=== PATIENT | female | born 1980 | race Caucasian/White ===

== ENCOUNTER 2020-06-12 14:44 | Outpatient (REF) | payer OTHER, SELFPAY ==
--- NOTE | 2020-06-12 | US_ITS ---
EXAMINATION: ULTRASOUND OF THE PELVIS CLINICAL INFORMATION: Irregular menses. COMPARISON: None. TECHNIQUE: Transabdominal and transvaginal pelvic ultrasound. A transvaginal study was performed in addition to the transabdominal study which did not yield an adequate examination of the uterus and ovaries due to superimposed distended gas-filled loops of bowel. FINDINGS: The uterus is normal in size and appearance, measuring 7.2 x 3.2 x 4.6 cm longitudinally, anteroposteriorly and transversely. The endometrial stripe thickness is normal, measuring 0.4 cm in thickness. Small amount of fluid seen in the endometrial canal of the lower uterine segment. No focal myometrial mass is seen. The ovaries bilaterally are visualized and appear normal, with the right ovary measuring 3 x 2.4 x 1.6 cm and the left ovary measuring 2.8 x 1.5 x 0.8 cm. No adnexal mass or free fluid collection seen. US/US pelvic complete IMPRESSION: No abnormal endometrial thickening. Small amount of fluid within the endometrial canal of the lower uterine segment. No pelvic mass.
--- NOTE | 2020-06-12 | US_ITS ---
EXAMINATION: ULTRASOUND OF THE PELVIS CLINICAL INFORMATION: Irregular menses. COMPARISON: None. TECHNIQUE: Transabdominal and transvaginal pelvic ultrasound. A transvaginal study was performed in addition to the transabdominal study which did not yield an adequate examination of the uterus and ovaries due to superimposed distended gas-filled loops of bowel. FINDINGS: The uterus is normal in size and appearance, measuring 7.2 x 3.2 x 4.6 cm longitudinally, anteroposteriorly and transversely. The endometrial stripe thickness is normal, measuring 0.4 cm in thickness. Small amount of fluid seen in the endometrial canal of the lower uterine segment. No focal myometrial mass is seen. The ovaries bilaterally are visualized and appear normal, with the right ovary measuring 3 x 2.4 x 1.6 cm and the left ovary measuring 2.8 x 1.5 x 0.8 cm. No adnexal mass or free fluid collection seen. US/US transvaginal IMPRESSION: No abnormal endometrial thickening. Small amount of fluid within the endometrial canal of the lower uterine segment. No pelvic mass.
[2020-06-12 16:07] LABS: MANUAL DIFF FLAG NO
[2020-06-12 16:12] LABS: Basophils Absolute Auto 0.1 X10*3/uL (0.0-0.2); Basophils Percent Auto 0.8 % (0-2); Eosinophils Absolute Auto 0.1 X10*3/uL (0.0-0.4); Eosinophils Percent Auto 2.2 % (0-4); Hematocrit 39.9 % (37-47); Hemoglobin 13.1 g/dl (12.0-16.0); Imm Gran Abs Auto 0.02 X10*3/uL (0.00-0.03); Imm Gran Pct Auto 0.3 % (0.0-0.4); Lymphocytes Absolute Auto 1.5 X10*3/uL (1.2-4.9); Lymphocytes Percent Auto 24.3 % (20-40); Mean Corpuscular HGB Conc 32.8 g/dl (31.0-35.0); Mean Corpuscular Volume 94.5 fL (80-98); Mean Platelet Volume 10.2 fL (9.4-12.3); Monocytes Absolute Auto 0.6 X10*3/uL (0.1-1.2); Monocytes Percent Auto 9.3 % (2-11); Neutrophils Absolute Auto 3.8 X10*3/uL (2.0-8.3); Neutrophils Percent Auto 63.1 % (45-73); Platelet Count 270 X10*3/uL (160-400); Red Blood Count 4.22 X10*6/uL (4.20-5.50); Red Cell Distribution Width 12.6 % (11.0-16.0)
[2020-06-12 16:58] LABS: TSH reflex Free T4 1.49 mIU/mL (0.32-4.0)
[2020-06-13 07:47] LABS: Prolactin 17.4 ng/mL
== END 2020-06-12 14:45 | disposition home or self-care (01) ==
LOC: HO.US 14:44
PROVIDERS: PCP Pediatrics; Visit Provider Obstetrics & Gynecology
DX: N92.1 Excessive and frequent menstruation with irregular cycle (principal)
CPT/HCPCS: 36415; 76830; 76856; 84146; 84443; 85025

== ENCOUNTER 2020-07-05 08:36 | Outpatient (REF) | payer OTHER, SELFPAY ==
[2020-07-05 12:17] LABS: SARS COV2 IgG Negative (Negative)
== END 2020-07-05 08:37 | disposition home or self-care (01) ==
LOC: HO.LAB 08:36
PROVIDERS: PCP Pediatrics; Visit Provider Hospitalist
DX: U07.1 COVID-19 (principal)
CPT/HCPCS: 86769

== ENCOUNTER 2020-10-11 08:40 | Outpatient (REF) | payer OTHER, SELFPAY ==
[2020-10-11 09:01] LABS: COVID-19 Test Negative (Negative); IDNOW Serial# 55D5AD1C
== END 2020-10-11 08:41 | disposition home or self-care (01) ==
LOC: HO.EMPCOV 08:40
PROVIDERS: Visit Provider Internal Medicine
DX: Z20.822 Contact with and (suspected) exposure to COVID-19 (principal)
CPT/HCPCS: 36415; 87635; C9803

== ENCOUNTER 2020-11-02 11:39 | Outpatient (REF) | payer OTHER, SELFPAY ==
[2020-11-02 12:31] LABS: Hematocrit 40.3 % (37-47); Mean Corpuscular HGB Conc 32.3 g/dl (31.0-35.0); Mean Corpuscular Hemoglobin 29.7 pg (27.0-33.0); Mean Platelet Volume 10.4 fL (9.4-12.3); Platelet Count 268 X10*3/uL (160-400); Red Blood Count 4.38 X10*6/uL (4.20-5.50); Red Cell Distribution Width 13.7 % (11.0-16.0); White Blood Count 7.5 X10*3/uL (4.8-10.8)
[2020-11-02 13:04] LABS: HCG Quantitative < 2 mIU/mL
== END 2020-11-02 11:40 | disposition home or self-care (01) ==
LOC: HO.LAB 11:39
PROVIDERS: PCP Pediatrics; Visit Provider Obstetrics & Gynecology
DX: R58 Hemorrhage, not elsewhere classified (principal)
CPT/HCPCS: 36415; 84702; 85027

== ENCOUNTER 2021-01-29 10:46 | Outpatient (REF) | payer OTHER, SELFPAY ==
--- NOTE | ~2021-01-29 | XR_ITS ---
EXAMINATION: XR ANKLE, LEFT CLINICAL INFORMATION: Injury COMPARISON: None TECHNIQUE: AP, lateral, and mortise views of the left ankle. FINDINGS: The bones and soft tissues are normal. No fracture. Alignment is anatomic. Joint spaces are maintained. No joint effusion. XR/XR ankle LT min 3V IMPRESSION: Normal left ankle.
--- NOTE | ~2021-01-29 | US_ITS ---
EXAMINATION: US VENOUS ULTRASOUND WITH DOPPLER LOWER EXTREMITY, LEFT CLINICAL INFORMATION: Localized swelling, mass and lump. Pain. COMPARISON: None TECHNIQUE: Ultrasound of the deep veins is performed from the hip to the calf with compression sonography and color and pulse Doppler assessment. Spectral analysis with color-flow imaging is performed. FINDINGS: There is normal venous compression and respiratory variation and augmented flow. The visualized common femoral vein, superficial femoral vein, profunda femoral vein, popliteal vein, and the trifurcation region shows no evidence of deep venous thrombosis. There is no significant popliteal fossa cyst. No soft tissue mass or fluid collection is seen in the area of palpable abnormality over the medial ankle. US/US venous duplex LE LT IMPRESSION: No DVT demonstrated in the left lower extremity.
== END 2021-01-29 10:47 | disposition home or self-care (01) ==
LOC: HO.HMGCX 10:46
PROVIDERS: PCP Pediatrics; Visit Provider Nurse Practitioner Family
DX: S99.912A Unspecified injury of left ankle, initial encounter (principal); M79.662 Pain in left lower leg; R22.42 Localized swelling, mass and lump, left lower limb
CPT/HCPCS: 73610; 93971

== ENCOUNTER 2021-05-14 07:10 | Outpatient (REF) | payer OTHER, SELFPAY ==
--- NOTE | ~2021-05-14 | XR_ITS ---
EXAMINATION: XR FOOT, LEFT CLINICAL INFORMATION: Pain COMPARISON: Left ankle x-ray January 2021 TECHNIQUE: AP, lateral, and oblique views of the left foot. FINDINGS: The bones and soft tissues are normal. No fracture. Alignment is anatomic. Joint spaces are maintained. XR/XR foot LT 2V IMPRESSION: Normal left foot.
== END 2021-05-14 07:11 | disposition home or self-care (01) ==
LOC: HO.XRAY 07:10
PROVIDERS: Visit Provider Family Medicine
DX: M79.672 Pain in left foot (principal)
CPT/HCPCS: 73620

== ENCOUNTER 2021-07-30 07:20 | Outpatient (REF) | payer OTHER, SELFPAY ==
[2021-07-31 04:14] LABS: SARS COV2 IgG Negative (Negative)
== END 2021-07-30 07:21 | disposition home or self-care (01) ==
LOC: HO.LAB 07:20
PROVIDERS: Visit Provider Internal Medicine Pulmonary Disease
DX: Z20.822 Contact with and (suspected) exposure to COVID-19 (principal)
CPT/HCPCS: 36415; 86769

== ENCOUNTER 2022-04-24 12:10 | Outpatient (REF) | payer OTHER, SELFPAY ==
--- NOTE | ~2022-04-24 | MM_ITS ---
EXAMINATION: MM SCREENING DIGITAL BREAST TOMOSYNTHESIS, BILATERAL CLINICAL INFORMATION: Screening. Asymptomatic. Age 41. No prior breast imaging. No known family history breast cancer. The lifetime risk of breast cancer based on the Tyrer-Cuzick Model is 12%. COMPARISON: None (current study represents initial baseline exam). TECHNIQUE: Digital breast tomosynthesis is performed in both the craniocaudal and mediolateral oblique views along with computer-aided detection (CAD). Synthesized 2D images are generated from the tomosynthesis. FINDINGS: The breasts are heterogeneously dense, which may obscure small masses (ACR BI-RADS breast composition Category c). There is no significant mass and no architectural abnormality. The axilla and skin contours are unremarkable. Right breast shows no abnormal calcifications. Left breast has some calcifications anterior outer breast. Patient will be recalled for additional magnification views to fully characterize. MM/MM tomosynthesis screening BI IMPRESSION: Left: -Calcifications anterior outer breast. Right: -No mammographic evidence of malignancy. ASSESSMENT: BI-RADS 0: Incomplete - Need Additional Imaging Evaluation RECOMMENDATION: 1. Additional views of the left breast (magnification CC, magnification ML). 2. Radiology department staff will contact the patient for additional imaging. This patient's information was entered into a reminder system with a target due date for their next mammogram.
== END 2022-04-24 12:11 | disposition home or self-care (01) ==
LOC: HO.MAMMO 12:10
PROVIDERS: PCP Pediatrics; Visit Provider Pediatrics
DX: Z12.31 Encounter for screening mammogram for malignant neoplasm of breast (principal)
CPT/HCPCS: 77063; 77067

== ENCOUNTER 2022-04-30 08:21 | Outpatient (REF) | payer OTHER, SELFPAY ==
--- NOTE | ~2022-04-30 | MM_ITS ---
EXAMINATION: MM DIAGNOSTIC DIGITAL MAMMOGRAPHY, LEFT CLINICAL INFORMATION: Recall from baseline screening for calcifications anterior outer left breast. TC score 12%. No known family history breast cancer. COMPARISON: Mammography: 04/24/2022, baseline. TECHNIQUE: Digital mammography is performed in the following views: Magnification CC, magnification ML FINDINGS: The breasts are heterogeneously dense, which may obscure small masses (ACR BI-RADS breast composition Category c). The additional magnification views demonstrate similar appearing regional calcifications anterior lower outer left breast. Calcifications are scattered on the ML view. The recent baseline exam also shows scattered similar calcifications lower inner right breast of lesser number. Left breast calcifications will be reassessed again in 6 months to include magnification views. Results are discussed with the patient at time of visit. MM/MM added views LT IMPRESSION: Probable benign regional calcifications anterior lower outer left breast. ASSESSMENT: BI-RADS 3: Probably Benign RECOMMENDATION: Diagnostic left mammography in 6 months. This patient's information was entered into a reminder system with a target due date for their next mammogram.
== END 2022-04-30 08:22 | disposition home or self-care (01) ==
LOC: HO.MAMMO 08:21
PROVIDERS: PCP Pediatrics; Visit Provider Pediatrics
DX: R92.8 Other abnormal and inconclusive findings on diagnostic imaging of breast (principal)
CPT/HCPCS: 77065

== ENCOUNTER 2022-07-31 11:08 | Outpatient (REF) | payer OTHER, SELFPAY ==
[2022-07-31 11:30] LABS: MANUAL DIFF FLAG NO
[2022-07-31 11:47] LABS: Basophils Absolute Auto 0.1 X10*3/uL (0.0-0.2); Basophils Percent Auto 1.1 % (0-2); Eosinophils Absolute Auto 0.2 X10*3/uL (0.0-0.4); Eosinophils Percent Auto 2.9 % (0-4); Hematocrit 41.5 % (37.0-47.0); Hemoglobin 13.9 g/dl (12.0-16.0); Imm Gran Abs Auto 0.02 X10*3/uL (0.00-0.03); Imm Gran Pct Auto 0.3 % (0.0-0.4); Lymphocytes Absolute Auto 1.5 X10*3/uL (1.2-4.9); Lymphocytes Percent Auto 23.7 % (20-40); Mean Corpuscular HGB Conc 33.5 g/dl (31.0-35.0); Mean Corpuscular Hemoglobin 30.5 pg (27.0-33.0); Monocytes Absolute Auto 0.5 X10*3/uL (0.1-1.2); Monocytes Percent Auto 7.5 % (2-11); Neutrophils Percent Auto 64.5 % (45-73); Platelet Count 298 X10*3/uL (160-400); Red Blood Count 4.56 X10*6/uL (4.20-5.50); Red Cell Distribution Width 12.3 % (11.0-16.0); White Blood Count 6.2 X10*3/uL (4.8-10.8)
[2022-07-31 12:24] LABS: Alanine Aminotransferase 23 U/L (0-31); Albumin Level 4.3 g/dL (3.5-5.0); Alkaline Phosphatase 75 U/L (39-117); Anion Gap 13 (12-20); Aspartate Amino Transferase 22 U/L (5-31); Bilirubin Total 0.4 mg/dL (0.0-1.0); Blood Urea Nitrogen 12 mg/dL (9-16); C Reactive Protein 0.21 mg/dL (< or = 0.50); Calcium 9.3 mg/dL (8.4-10.2); Carbon Dioxide 23 mmol/L (22-29); Chloride 108 mmol/L (96-108); Estimated Glomerular Filt Rate > 60; Glucose Random 82 mg/dL (60-115); Sodium 140 mmol/L (135-145); Total Protein 7.2 g/dL (6.5-8.0)
[2022-07-31 12:29] LABS: Erythrocyte Sedimentation Rate 10 MM/HR (0-20)
== END 2022-07-31 11:09 | disposition home or self-care (01) ==
LOC: HO.LAB 11:08
PROVIDERS: PCP Pediatrics; Visit Provider Family Medicine
DX: R21 Rash and other nonspecific skin eruption (principal); L29.9 Pruritus, unspecified
CPT/HCPCS: 36415; 80053; 85025; 85652; 86140

== ENCOUNTER → 2022-08-12 15:00 | Outpatient (REF) | payer OTHER, SELFPAY ==
--- NOTE | 2022-08-12 15:04 | CA_ITS ---
Transthoracic Echocardiogram Patient (Last, First, Middle): Laura Gutierrez, Gender: Female Date of : 1980 Age: 41 Procedure Date: 08/12/2022 Procedure Type: Transthoracic Echocardiogram Location: OP Height: 157.48 cm Weight: 69.85 kg BSA: 1.71 m2 Heart Rate: bpm BP: 124 / 82 mmHg Detective Lieutenant: MOJGAN Referring MD: Jami Espana MD Shipping Track Supervisor: Shashi Reveles MD Symptoms: DAVE.2 PALPITATIONS Study Quality: Adequate ECG Rhythm: Sinus Conclusions: - Normal study Findings Left Ventricle Normal left ventricular size, thickness, and systolic function. The visually estimated ejection fraction is between 60-65%. Diastolic function is normal for age. Peak GLS is -21.3%, within normal limits. Right Ventricle Normal right ventricular cavity size and systolic function. Atria Both atria are normal in size. There is lipomatous hypertrophy of the interatrial septum. There is no evidence of interatrial shunt. Aortic Valve The aortic valve structure and function is likely normal. There is no aortic valve stenosis. There is no aortic valve regurgitation. Mitral Valve Normal mitral valve structure and function. There is trace mitral valve regurgitation. There is no mitral valve stenosis. Pulmonic Valve The pulmonic valve is likely normal. There is trace pulmonic valve regurgitation. Tricuspid Valve Normal tricuspid valve structure. There is trace tricuspid valve regurgitation. The right ventricular systolic pressure is normal. The right ventricular systolic pressure is 13 mmHg. Normal right atrial pressure. There is no evidence of pulmonary hypertension. Great Vessels All visible segments of the aorta are normal in size. The pulmonary artery was not well visualized. Venous The inferior vena cava is normal in size and collapses greater than 50% with inspiration. Pericardium/Pleural There is no evidence of pericardial effusion. Prior Study Comparison No prior study available for comparison. Measurements 2D Linear Measurements IVSd: 1.05 0.6-0.9/0.6-1.0 cm LVIDd: 3.67 3.9-5.3/4.2-5.9 cm LVIDd Index: 2.15 2.4-3.2/2.2-3.1 cm/m2 LVIDs: 2.74 2.0-3.6 cm LVPWd: 0.99 0.7-1.1 cm LA Diam: 2.90 2.7-3.8/3.0-4.0 cm LAIDs Index: 1.70 1.5-2.3 cm/m2 LV Mass: 141.90 67-162/88-224 g LV Mass Index: 82.98 43-95/49-115 g/m2 LVOT Diam: 1.90 3.0+(-)1.3 cm 2D Systolic Function EF 4C: 63.10 >55% EF 2C: 64.40 >55% EF BiP: 63.40 >55% Mitral Valve MV Pk E: 0.82 MV PK A: 1.04 MV Decel Time: 259.00 E/A: 0.80 E'Lateral: 12.00 E'Medial: 7.94 E/E' Med: 10.30 E/E' Lat: 6.80 PHT: 76.00 MVA PHT: 2.89 Decel Carlton: 3.17 Aortic Valve AoV Pk Dustin: 1.42 AoV Mn Dustin: 1.08 AoV VTI: 0.34 AoV Pk Grad: 8.00 Aov Mn Grad: 5.00 DARNELL Cont.VTI: 2.22 LVOT LVOT Pk Dustin: 1.35 LVOT Mn Dustin: 0.82 LVOT VTI: 0.27 LVOT Pk Grad: 7.00 LVOT Mn Grad: 3.00 LVOT Diam: 1.90 LVOT Area: 2.84 Diastolic Function MV Pk E: 0.82 MV Pk A: 1.04 E/A: 0.80 E'Medial: 7.94 E/E' Med: 10.30 E' Laterial: 12.00 E/E' Lat: 6.80 Right Ventricle TAPSE (mm): 25.20 TVS' Dustin: 10.70 Tricuspid Valve TR Pk Dustin: 1.55 TR Pk Grad: 10.00 RA Press: 3.00 RVSP: 13.00 Great Vessels Aorta Sinus of Valsalva: 3.62 2.0-3.[address] Ridge: 2.60 1.7-3.4 cm Ao Asc: 3.30 2.1-3.4 cm Ao Arch: 2.90 Updated in Other Vendor System with Status of Final Shashi Reveles MD electronically signed on 08/12/2022 4:25:56 PM with status of Final
== END ==
LOC: HO.CARD 15:00
PROVIDERS: Visit Provider Internal Medicine Cardiovascular Disease
DX: R00.2 Palpitations (principal); I47.1 Supraventricular tachycardia
CPT/HCPCS: 93306; 93356

== ENCOUNTER 2022-10-30 14:45 | Outpatient (REF) | payer OTHER, SELFPAY ==
--- NOTE | ~2022-10-30 | MM_ITS ---
EXAMINATION: MM DIAGNOSTIC DIGITAL BREAST TOMOSYNTHESIS, LEFT CLINICAL INFORMATION: Short interval six-month follow-up probable benign calcifications anterior outer left breast. The lifetime risk of breast cancer based on the Tyrer-Cuzick Model is 12%. COMPARISON: Mammography: 04/30/2022, 04/24/2022 (Baseline, BI-RADS 0). TECHNIQUE: Digital breast tomosynthesis is performed in both the craniocaudal and mediolateral oblique views along with computer-aided detection (CAD). Synthesized 2D images are generated from the tomosynthesis. Additional magnification left CC and magnification left ML views are obtained. FINDINGS: The breasts are heterogeneously dense, which may obscure small masses (ACR BI-RADS breast composition Category c). There is no developing density or interval mass or architectural abnormality. Scattered calcifications in the anterior outer left breast are similar to prior diagnostic exam. No increasing calcifications or interval pleomorphic types. Calcifications will be reassessed again at time of annual bilateral mammography, due in 6 months. Results are provided to the patient at time of visit by the technologist. MM/MM tomosynthesis diagnostic LT IMPRESSION: No significant changes from prior diagnostic exam. ASSESSMENT: BI-RADS 3: Probably Benign RECOMMENDATION: Diagnostic mammography at time of annual mammography, due in 6 months. This patient's information was entered into a reminder system with a target due date for their next mammogram.
== END 2022-10-30 14:46 | disposition home or self-care (01) ==
LOC: HO.MAMMO 14:45
PROVIDERS: PCP Pediatrics; Visit Provider Pediatrics
DX: R92.1 Mammographic calcification found on diagnostic imaging of breast (principal)
CPT/HCPCS: 77061; 77065

== ENCOUNTER → 2022-12-29 07:50 | Outpatient (BNVA) | payer OTHER, SELFPAY | PROVIDERS: PCP Pediatrics; Visit Provider Internal Medicine ==

== ENCOUNTER 2023-01-01 07:11 | Outpatient (REF) | payer OTHER, SELFPAY ==
--- NOTE | ~2023-01-01 | XR_ITS ---
EXAMINATION: XR HIP, LEFT CLINICAL INFORMATION: Left hip pain COMPARISON: None available. TECHNIQUE: Two views of the left hip. FINDINGS: Left hip joint space is maintained normal. No visible fracture or dislocation seen. There is a small enthesophyte or loose body lateral to the left acetabulum. SI joints are symmetrical. The soft tissues are normal. The right hip joint space is normal. The SI joints are symmetric and normal. Rest of the pelvic bones are unremarkable. The soft tissues are normal. XR/XR hip LT w PEL1V IMPRESSION: Small osteophyte versus avulsion fracture lateral left acetabulum.
== END 2023-01-01 07:12 | disposition home or self-care (01) ==
LOC: HO.XRAY 07:11
PROVIDERS: PCP Pediatrics; Visit Provider Internal Medicine
DX: M25.552 Pain in left hip (principal)
CPT/HCPCS: 73502

== ENCOUNTER 2023-02-11 08:19 | Outpatient (REF) | payer OTHER, SELFPAY ==
--- NOTE | ~2023-02-11 | XR_ITS ---
EXAMINATION: XR HIP, LEFT CLINICAL INFORMATION: Pain. COMPARISON: Radiographs dated 01/01/2023. TECHNIQUE: AP and frog-leg lateral views of the left hip. FINDINGS: Bony alignment and mineralization are normal. A stable bony fragment is seen at the lateral aspect of the left acetabular roof. This is again well-corticated, with a corresponding defect noted at the lateral margin of the acetabular roof. This likely represents a chronic avulsion fragment. There is subchondral sclerosis of the left acetabular roof. The right acetabular joint space is well-maintained. The femoral heads appear smooth. The soft tissue planes are unremarkable. XR/XR hip LT w PEL1V IMPRESSION: There is a small avulsion fragment again noted at the lateral margin of the left acetabular roof, with subacute to chronic appearance.
== END 2023-02-11 08:20 | disposition home or self-care (01) ==
LOC: HO.HOSX 08:19
PROVIDERS: Visit Provider Orthopaedic Surgery
DX: M25.552 Pain in left hip (principal); S73.192A Other sprain of left hip, initial encounter; X58.XXXA Exposure to other specified factors, initial encounter; Y93.9 Activity, unspecified; Y92.9 Unspecified place or not applicable; Y99.9 Unspecified external cause status
CPT/HCPCS: 73502

== ENCOUNTER 2023-02-11 12:23 | Outpatient (AMB) | payer OTHER, SELFPAY ==
--- NOTE | 2023-02-11 12:35 | MHC.OFFVIS ---
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 Patients reports that she has ongoing pain in the left groin region of her hip for more than 1 year. The patient does not recall any specific traumatic event preceding the onset of her pain. She does play competitive softball. Multiple times a day she feels a catching in the hip that locks the hip and increases pain. Recently seen with pain mgmt who referred her to physical therapy. She did go to physical therapy for 12 weeks over the last 6 months which aggravated her pain.. She takes Motrin daily for her pain which only helps mildly. Denies numbness and tingling. She has also tried Tylenol which gives her minimal relief. 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 Physical Exam Vital Signs: BMI result Body Mass Index 28.9 Const Other: Well-nourished well-developed very friendly female awake alert and oriented x3 in no acute distress Extrem Other: Bilateral lower extremity examination shows good capillary refill, no skin lesions noted, normal sensation light touch Left hip examination shows decreased range of motion when compared to her right hip, pain with range of motion, increased pain with forward flexion and internal rotation, no tenderness over Results Reviewed Results Reviewed: X-rays of the patient's left hip taken today show mild acetabular dysplasia as well as a possible loose body along the lateral aspect of her acetabulum Assessment & Plan Assessment & Plan (1) Labral tear of left hip joint: Code(s): S73.192A - Other sprain of left hip, initial encounter Plan: Ms. Gutierrez presents with progressively worsening left hip pain and mechanical symptoms most likely due to the presence of a loose body as well as possible tearing of her labrum. Thus, I will send her for an MRI of her left hip for further evaluation. I will see her back once the MRI is completed to discuss the findings and treatment options. She will continue with activity modifications in the meantime. Feel free to call me at any time should questions regarding her orthopedic management arise. Thank you very much for asking me see this very friendly patient. I spent 22 minutes in reviewing the patient's records and imaging studies, seeing the patient and documenting in the medical record. Orders: Orders XR hip LT w PEL1V Today M25.552 - Pain in left hip MR hip LT wo con Today S73.192A - Other sprain of left hip, initial encounter Coding Level of Care Code New Pt Level 2 (38126) Diagnoses Labral tear of left hip joint S73.192A
[2023-02-11 12:42] VITALS: BMI 28.9
== END 2023-02-11 13:56 | disposition home or self-care (01) ==
PROVIDERS: PCP Pediatrics; Visit Provider Orthopaedic Surgery
DX: S73.192A Other sprain of left hip, initial encounter (principal)
CPT/HCPCS: 99202

== ENCOUNTER 2023-03-03 07:00 | Outpatient (RCR) | payer OTHER, SELFPAY ==
--- NOTE | 2023-01-22 11:49 | MHC.PT.EP ---
[facility] [place] [facility] [place] [facility] [place] [facility] [address] [place] [address] [phone] F: [phone] F: [phone] F: [phone] F: [phone] Physical Therapy Plan of Care Date of Evaluation: Date of Surgery: Diagnosis: LEFT HIP PAIN Assessment: 42 YO FEMALE REF TO PT W Lt HIP PAIN W INITIAL ONSET 8 MONTHS AGO WITH FEELING OF Lt HIP GIVING OUT- THIS RESOLVED UNTIL APPROX 3-4 WKS AGO -> SHE WAS RUNNING WHILE PLAYING SOFTBALL, SHE EXPERIENCED SEARING PAIN IN HER Lt GROIN/HIP AND INTO Lt THIGH TO HER KNEE- SHE FELT HER Lt HIP GAVE OUT AND SHE HAD DIFFIC WT BEARING- SHE NOTES HER SXS HAVE BEEN WORSE EVER SINCE. THE Pt WAS REF TO [facility] [place], XRAYS TAKEN, AND REF TO PT. 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 THE Pt HAS DECR FLEXIB IN Lt > Rt HIP, DECR AROM Lt HIP, (-) FADIR Lt, (+) SACRAL SQUISH Rt W (+) LUMBOPELVIC ASYMM W LLI INFLUENCE, WEAKNESS AND ATROPHY IN Lt GLUTE COMPLEX; TTP Lt HIP FLEXOR WAD AND INTERM SHARP PAIN Lt GROIN. FUNCTIONALLY, THE Pt IS UNABLE TO PLAY SOFTBALL, SORE W GETTING IN/OUT OF HER CAR, STANDING AND TURNING TO THE LEFT, NAVIGATING STAIRS, INCR STANDING, PROLONGED SITTING, GUARDED W SQUATTING, AND TRANSITIONAL MVMTS. THE Pt WOULD BENEFIT FROM PT TO ADDRESS LUMBOPELVIC SYMM, STABILIZATION, HIP FLEXIB, SOFT TISSUE WORK ON HER LUMBAR PS AND Lt PSOAS, AND DEV A HEP / SELF-SX MGMT TECHN. Frequency and Duration: The patient will be seen 2 x WK x 5 WKS Short Term Goals: *Pt'S LEFT HIP PAIN DECR TO 2-3/10 W DAILY ACTIVITIES *INCR FLEXIB IN PSOAS/ CALF MM TO IMPROVE EFFICIENCY OF GAIT AND ADL RAYSA *Pt DISPLAY WFL LUMBOPELVIC STAB/ SYMM -> RESOLVED LLI EFFECT LEFT HIP *Pt IN/OUT OF THE CAR W/O PAIN Assisted Goals: Pt INDEP W HEP PROGRESSION AND SELF-SX MGMT STRATEGIES Pt RESUME REG ADLs AND SPORTS/SOFTBALL EVIDENT W IMPROVED LEFI SCORE BY 8-10 POINTS (AT EVAL 30/80 ) IN 5 WKS Pt INCR LUMBOPELVIC STAB AND LEFT LE STRENGTH BY 1 GRADE Treatment Plan: Modalities to reduce pain, spasms and effusion. Manual therapy to restore motion and function. Therapeutic exercise to improve strength and flexibility. Neuromuscular re-education for posture and balance. Therapeutic activities to return to functional activities of daily living. Electronically signed by: VERNA FRIEDMAN,PT Please sign and return to therapist. Thank you for your referral.
--- NOTE | 2023-03-12 11:06 | MHC.PT.DC ---
[facility] [place] Office [place] Office [place] Office [address] Carlton Brownlee 140 [facility] [phone] F: [phone] F: [phone] F: [phone] F: [phone] Physical Therapy Discharge Report Diagnosis: LEFT HIP PAIN Date of Surgery: Date of Evaluation: 01/22/23 Date of Discharge: 03/12/23 Treatments to Date: 9 Cancellations to Date: 1 No Shows to Date: 1 Discharge Status: Independent with HEP Patient Elected to Stop Recommend MD Follow-up Discharge Summary: AUBREY IS INDEP W HER HEP TO CAUTIOUSLY ADDRESS LUMBOPELVIC STABILIZATION AND TRUNK/LEs FLEXIB->SHE HAD (+) MUSCULAR EFFORT WITHOUT PAIN; HER LEFT HIP SXS PERSISTED AND HER RECENT MRI CONFIRMED A LEFT LABRAL TEAR. SHE IS D/C FROM PT AT THIS TIME-> SHE MET SOME OF HER PT GOALS. Electronically signed by: VERNA FRIEDMAN,PT Please sign and return to therapist. Thank you for your referral.
== END 2023-03-12 11:07 | disposition home or self-care (01) ==
LOC: HO.PT 07:00
PROVIDERS: PCP Pediatrics; Visit Provider Internal Medicine
DX: M25.552 Pain in left hip (principal)
CPT/HCPCS: 97110; 97140; 97162; 97530

== ENCOUNTER 2023-03-05 12:04 | Outpatient (REF) | payer OTHER, SELFPAY ==
--- NOTE | ~2023-03-05 | MR_ITS ---
EXAMINATION: MR HIP WITHOUT CONTRAST, LEFT CLINICAL INFORMATION: Left hip/groin pain following an injury 8 months ago. COMPARISON: Left hip radiographs dated 02/11/2023 and 01/01/2023. TECHNIQUE: MRI of the left hip was obtained using routine sequences on a high-field magnet. FINDINGS: ACETABULAR LABRUM: Linear fluid signal within the undersurface of the anterosuperior and lateral labrum, consistent with nondisplaced undersurface tearing. ARTICULAR CARTILAGE/BONE: Articular cartilage thinning with full-thickness loss of the anterosuperior acetabulum where there is mild underlying subchondral cystic change and marrow edema. Marginal osteophytes. Redemonstration of a corticated ossification along the lateral acetabulum measuring up to 2 cm in AP dimension. No associated edema. Findings likely represent an unfused osteophyte. No acute fracture or dislocation. No stress reaction, fracture, or avascular necrosis. No concerning lytic or blastic osseous lesion. The alpha angle measures approximately 44 degrees as measured at the 3 o'clock position on the sagittal oblique images. Acetabular depth within normal limits. MUSCLES/TENDONS: Minimal edema adjacent to the gluteus medius tendon, consistent with minimal tendinosis. No measurable muscle or tendon tear. JOINT FLUID/BURSA: Within normal limits. INTRAPELVIC STRUCTURES: Unremarkable. MR/MR hip LT wo con IMPRESSION: 1. Nondisplaced undersurface tearing of the anterosuperior and lateral labrum. 2. [id number]-fidiigdf left hip osteoarthritis. No stress reaction, fracture, or avascular necrosis. 3. Minimal gluteus medius tendinosis.
== END 2023-03-05 12:05 | disposition home or self-care (01) ==
LOC: HO.MRI 12:04
PROVIDERS: Visit Provider Orthopaedic Surgery
DX: S73.192A Other sprain of left hip, initial encounter (principal)
CPT/HCPCS: 73721

== ENCOUNTER 2023-03-11 13:43 | Outpatient (AMB) | payer OTHER, SELFPAY ==
--- NOTE | 2023-03-11 13:50 | MHC.OFFVIS ---
Intake Vital Signs 03/11/23 13:53 Height 5 ft 2 in Weight 158 lb BMI 28.9 Intake Visit Reasons: OV-MRI review LT hip Intake Note: Laura is a 42 year old female who presents today for an MRI follow up of her left hip. The patient reports progressively worsening pain over the last few years. She has been doing physical therapy which has given her minimal relief. She has also tried Tylenol and anti-inflammatory medicines which gave her only mild relief. 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 Physical Exam Vital Signs: BMI result Body Mass Index 28.9 Const Other: Well-nourished well-developed very friendly female awake alert and oriented x3 in no acute distress Extrem Other: Bilateral lower extremity examination shows good capillary refill, no skin lesions noted, normal sensation light touch Left hip examination shows decreased range of motion when compared to her right hip, pain with range of motion, increased pain with forward flexion and internal rotation, no tenderness over her bursa Results Reviewed Results Reviewed: MRI of the patient's left hip shows diffuse mild degenerative changes as well as a tear of the anterosuperior labrum Assessment & Plan Assessment & Plan (1) Labral tear of left hip joint: Code(s): S73.192A - Other sprain of left hip, initial encounter Plan Ms. Gutierrez presents with progressively worsening left hip pain due to a labral tear. This point the patient appears to be failing continued non operative treatments. No one here at [facility] performs hip arthroscopic surgery. Thus, I did give her the names and phone numbers of physicians here in [place] and in the [place] area who could perform this type of surgery for if she chooses. Patient also states that she has heard of an orthopedic surgeon at [facility] who specializes in hip arthroscopy. She can certainly follow up with him as well. She will follow up with me on an as-needed basis. Feel free to call me at any time should questions regarding her orthopedic management arise. I spent 22 minutes in reviewing the patient's records and imaging studies, seeing the patient and documenting in the medical record. Coding Level of Care Code Est Pt Level 2 (37440) Diagnoses Labral tear of left hip joint S73.192A
[2023-03-11 13:53] VITALS: BMI 28.9
== END 2023-03-11 14:29 | disposition home or self-care (01) ==
PROVIDERS: PCP Pediatrics; Visit Provider Orthopaedic Surgery
DX: S73.192A Other sprain of left hip, initial encounter (principal)
CPT/HCPCS: 99212

== ENCOUNTER → 2023-03-11 13:43 | Outpatient (BNVA) | payer OTHER, SELFPAY | PROVIDERS: PCP Pediatrics; Visit Provider Orthopaedic Surgery ==

== ENCOUNTER 2023-05-25 13:00 | Outpatient (REF) | payer OTHER, SELFPAY ==
--- NOTE | ~2023-05-25 | MM_ITS ---
EXAMINATION: MM DIAGNOSTIC DIGITAL BREAST TOMOSYNTHESIS, BILATERAL CLINICAL INFORMATION: Six-month follow-up calcifications left breast. COMPARISON: Mammography: 10/30/2022, 04/30/2022, 04/24/2022, (BI-RADS 0) TECHNIQUE: Digital breast tomosynthesis is performed in both the craniocaudal and mediolateral oblique views along with computer-aided detection (CAD). Synthesized 2D images are generated from the tomosynthesis. In addition, 2D spot magnification views were performed in the left CC and ML projections. FINDINGS: The breasts are heterogeneously dense, which may obscure small masses (ACR BI-RADS breast composition Category c). Stable scattered calcifications with regional distribution, throughout the left heterogeneously dense breast parenchyma. No increasing calcifications or aggressive change. No tight grouping. These remain probably benign. Otherwise, There are no suspicious masses, suspicious grouped calcifications, or areas of architectural distortion in either breast. The parenchymal pattern is stable from prior exams. MM/MM tomosynthesis diagnostic BI IMPRESSION: There are no significant changes from the prior study. Stable regional calcifications left breast without aggressive change. Six-month interval follow-up left breast diagnostic mammogram recommended to include standard magnification views to ensure stability. ASSESSMENT: BI-RADS BI-RADS 3 - Probably benign finding(s) - 6 month follow-up suggested RECOMMENDATION: 6 Month F/U Results were provided to the patient at time of visit by the technologist. This patient's information was entered into a reminder system with a target due date for their next mammogram.
== END 2023-05-25 13:01 | disposition home or self-care (01) ==
LOC: HO.MAMMO 13:00
PROVIDERS: Visit Provider Pediatrics
DX: R92.1 Mammographic calcification found on diagnostic imaging of breast (principal)
CPT/HCPCS: 77062; 77066

== ENCOUNTER → 2023-05-25 13:00 | Outpatient (BNV) | payer OTHER, SELFPAY | PROVIDERS: Visit Provider Radiology Diagnostic Radiology | DX: R92.1 Mammographic calcification found on diagnostic imaging of breast (principal) | CPT/HCPCS: 77062; 77066 ==

== ENCOUNTER 2023-06-30 09:55 | Outpatient (REF) | payer OTHER, SELFPAY ==
[2023-06-30 12:58] LABS: Influenza A PCR NEGATIVE (Negative); Influenza B PCR NEGATIVE (Negative); Resp Syncy Virus RNA Qual PCR POSITIVE (Negative); SARS COV2 PCR INHOUSE NEGATIVE (Negative)
== END 2023-06-30 09:56 | disposition home or self-care (01) ==
LOC: HO.LNP 09:55
PROVIDERS: Visit Provider Internal Medicine Pulmonary Disease
DX: Z11.52 Encounter for screening for COVID-19 (principal); Z20.822 Contact with and (suspected) exposure to COVID-19; R05.9 Cough, unspecified
CPT/HCPCS: 0241U

== ENCOUNTER 2023-10-26 08:15 | Outpatient (AMB) | payer OTHER, SELFPAY ==
--- NOTE | 2023-10-26 08:20 | A.OFFVIS_ITS ---
Intake Vital Signs 10/26/23 08:22 Height 5 ft 2 in Weight 154 lb BMI 28.2 BP 123/68 Blood Pressure Location Lt brachial Position Sitting Pulse 83 Intake Visit Reasons: Colonoscopy Screening Allergies No Known Allergies [No Known Allergies*] Allergy (Verified 10/26/23 08:19) Medication List - Last Reconciled 10/26/23 by Caitlyn Seaman PA-C azithromycin 250 mg PO 3XW HPI HPI Comments History of Present Illness Details A pleasant 43 y/o female referred index screening colonoscopy No GI issues Good appetite - normal bowels No respiratory or cardiac She takes no prescribed medication No nausea, vomiting, hematemesis, hematochezia fever PFSH Medical History (Updated 10/26/23 @ 08:58 by Caitlyn Seaman PA-C) COVID-19 Surgical History Hx of prior ablation treatment Hx of section Family History Father Hypothyroidism Cardiac disease Mother Hypothyroidism Social History (Updated 10/26/23 @ 08:49 by Caitlyn Seaman PA-C) Household Members Other:: - 2n kids Patient Tobacco Use Status: Current everyday Tobacco user Cigarette Packs Per Day: 0.5 Current occupational status: employed 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 Review of Systems Const All systems reviewed & are unremarkable except as noted in HPI and below Card Denies chest pain and Denies dyspnea Resp Denies dyspnea GI Denies abdominal pain Physical Exam Vital Signs: Last Vital Signs Pulse 83 10/26/23 08:22 BP 123/68 10/26/23 08:22 BMI result Body Mass Index 28.2 Const General: cooperative, healthy appearing and comfortable Orientation/consciousness: patient oriented x3 Limitations: no limitations Eyes Sclerae: sclerae normal Resp Effort & Inspection: normal respiratory effort and able to speak in complete sentences Auscultation: clear to auscultation bilaterally Cardio Rate: regular rate Rhythm: regular rhythm Heart sounds: S1 normal heart sound present and S2 normal heart sound present GI Inspection: Yes normal to inspection Palpation (GI): Soft to palpation and nontender Auscultation: normal bowel sounds Skin General skin exam: no rashes or lesions noted Neuro General: patient oriented x3 Extrem General: Yes full ROM Psych Appearance: grossly normal and well kempt Mental Status: mental status grossly normal Speech and movement: Normal speech and movement present and Clear speech present Affect: normal affect Attitude: cooperative Thought content: Normal thought content present Insight: Good insight present (Psych) Judgement: Good judgement present (Psych) Assessment & Plan Assessment & Plan (1) Encounter for screening colonoscopy: Comment: No GI complaints, no family history GI cancer Code(s): Z12.11 - Encounter for screening for malignant neoplasm of colon Plan: Index screening Plan Index screen- req Roman- MG prep no meds Orders: Orders Colonoscopy - GI Use Only Today Z12.11 - Encounter for screening for malignant neoplasm of colon Medications: New bisacodyl (Dulcolax (bisacodyl)) Day before procedure @ 12 noon Take 4 tablets by mouth followed by large glass of water 20 mg (4 x 5 mg) PO ONCE PRN 4 tabs 0RF colonoscopy prep 1 day Z12.11 - Encounter for screening for malignant neoplasm of colon polyethylene glycol 3350 (Miralax) Take as directed by mouth the day before your procedure. 238 grams PO ONCE PRN 238 grams 0RF laxative effect 1 day Patient Instructions: Very pleasant 43-year-old female referred for index screening colonoscopy No GI or general complaints No family history of GI cancer Discussed procedure, rare risks need for MiraLax Gatorade prep, reviewed literature Encouraged to call questions or concerns Coding Level of Care Code New Pt Level 3 (84625) Diagnoses Encounter for screening colonoscopy Z12.11 Time Spent (min) 25
[2023-10-26 08:22] VITALS: BP 123/68; PULSE 83; BMI 28.2
== END 2023-10-26 09:31 | disposition home or self-care (01) ==
PROVIDERS: PCP Pediatrics; Visit Provider Physician Assistant
DX: Z01.818 Encounter for other preprocedural examination (principal); Z12.11 Encounter for screening for malignant neoplasm of colon
CPT/HCPCS: S0285

== ENCOUNTER → 2023-10-26 08:15 | Outpatient (BNVA) | payer OTHER, SELFPAY | PROVIDERS: PCP Pediatrics; Visit Provider Physician Assistant ==

== ENCOUNTER 2023-11-27 14:53 | Outpatient (REF) | payer OTHER, SELFPAY ==
--- NOTE | ~2023-11-27 | MM_ITS ---
EXAMINATION: MM DIAGNOSTIC DIGITAL BREAST TOMOSYNTHESIS, LEFT CLINICAL INFORMATION: Year 1.5 follow-up probably benign left breast calcifications. COMPARISON: Mammography: 05/25/2023, 10/30/2022, 04/30/2022, 04/24/2022, (BI-RADS 0). TECHNIQUE: Digital left breast tomosynthesis is performed in both the craniocaudal and mediolateral oblique views along with computer-aided detection (CAD). Synthesized 2D images are generated from the tomosynthesis. In addition, 2-D spot magnification views were performed in the CC and ML projections. FINDINGS: The breasts are heterogeneously dense, which may obscure small masses (ACR BI-RADS breast composition Category c). Stable scattered calcifications with regional distribution, throughout the left heterogeneously dense breast parenchyma. No increasing calcifications or aggressive change. No tight grouping. These subtle findings/calcifications are completely unchanged and remain probably benign. Otherwise, There are no suspicious masses, suspicious grouped calcifications, or areas of architectural distortion in the left breast. The heterogeneously dense parenchymal pattern is stable from prior exams. MM/MM tomosynthesis diagnostic LT IMPRESSION: There are no findings suspicious for malignancy left breast. Subtle calcifications in the heterogeneously dense parenchymal the left breast are stable without aggressive change, and remain probably benign. Six-month follow-up left breast magnification views recommended when the patient is due for bilateral screening in order to establish two-year stability and benignity. ASSESSMENT: BI-RADS BI-RADS 3 - Probably benign finding(s) - 6 month follow-up suggested RECOMMENDATION: 6 Month F/U Results were provided to the patient at time of visit by the technologist. This patient's information was entered into a reminder system with a target due date for their next mammogram.
== END 2023-11-27 14:54 | disposition home or self-care (01) ==
LOC: HO.MAMMO 14:53
PROVIDERS: PCP Pediatrics; Visit Provider Pediatrics
DX: R92.8 Other abnormal and inconclusive findings on diagnostic imaging of breast (principal)
CPT/HCPCS: 77061; 77065

== ENCOUNTER → 2023-11-27 15:00 | Outpatient (BNV) | payer OTHER, SELFPAY | PROVIDERS: PCP Pediatrics; Visit Provider Radiology Diagnostic Radiology | DX: R92.1 Mammographic calcification found on diagnostic imaging of breast (principal) | CPT/HCPCS: 77061; 77065 ==

== ENCOUNTER 2024-04-01 10:08 | Outpatient (AMB) | payer OTHER, SELFPAY ==
[2024-04-01 10:11] VITALS: BMI 28.2
--- NOTE | 2024-04-01 10:11 | A.OFFVIS_ITS ---
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 Patient reports numbness and pain on the inside of her hand to the ends of her fingers.Denies locking on finger or tingling. Patient states pain is worse when she wakes up in the morning. Has takes Ibuprofen and ice for pain, with no relief. Denies any prior injuries or surgeries to the right hand. Patient reports she has not had an EMG done. 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 The patient reports that this pain began approximately 2 months ago, when she awoke with pain in the volar MCP joints of the entire right hand, but the pain gradually went away in the index, ring, and small fingers, only remaining in the middle finger. The patient reports that this pain does move up and down the finger, and is associated with her feeling like there is an ?ball? under the skin in the area of the A1 neha of the right middle finger. Patient also reports that she has been experiencing intermittent numbness and tingling in bilateral upper extremities for ?many years?, and states that he did have an EMG done many years ago, but she does not have access to those records. Patient reports no locking and catching of the right middle finger. 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 No other acute complaints or concerns at this time. 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 Neuro: Median, ulnar, radial nerves motor and sensory intact and sensation is normal to the tips of all digits. Vascular: Cap refill brisk Pain: tenderness to palpation over the A1 neha of the right middle finger and volar distal 3rd metacarpal discomfort with extension of the right middle finger No other tenderness to palpation of the right hand noted ROM: With encouragement, patient is able to make a closed fist and extend all digits of the right hand fully Skin: No lacerations or abrasions. General: No ecchymosis, erythema, or evidence of infection. Of note, there is noted to be a small, ball like prominence upon palpation near the A1 neha of the right middle finger, consistent with potential trigger finger Psych: Appears grossly normal Affect normal Attitude cooperative Assessment & Plan Assessment & Plan (1) Pain of right middle finger: Code(s): M79.644 - Pain in right finger(s) Category: Medical (2) Numbness and tingling in both hands: Code(s): R20.0 - Anesthesia of skin; R20.2 - Paresthesia of skin Category: Medical Plan 1. Pain and stiffness of right middle finger Ongoing for approximately 2 months At this time, there is no acute intervention indicated for this pain, as I am suspicious that she may be beginning to develop a trigger finger, but there is no visible or palpable locking and catching of the right middle finger Patient is referred to occupational hand therapy for strengthening and range of motion of the right hand, particularly the middle finger Patient is amenable to this plan In the meantime, the patient is educated on activity modification and conservative pain management Patient will follow-up in 6-8 weeks if she does not notice any improvement with occupational therapy, sooner with any acute concerns 2. Numbness and tingling of bilateral hands Symptoms intermittent, almost daily, worse at night At this time, the patient does not have a current EMG for nerve conduction study on file Patient referred for EMG and nerve conduction study today Patient is amenable to this plan Patient will follow-up with me after nerve conduction study for results review and discussion of further treatment options, sooner with any acute concerns Orders: Orders OT Evaluation and Treatment Today M79.644 - Pain in right finger(s) NE nerve conduction velocity Today R20.0 - Anesthesia of skin, R20.2 - Paresthesia of skin NE electromyogram (EMG) Today R20.0 - Anesthesia of skin, R20.2 - Paresthesia of skin Coding Level of Care Code New Pt Level 3 (13418) Diagnoses Pain of right middle finger M79.644 Numbness and tingling in both hands R20.0; R20.2
== END 2024-04-01 10:41 | disposition home or self-care (01) ==
PROVIDERS: PCP Pediatrics
DX: M79.644 Pain in right finger(s) (principal); R20.0 Anesthesia of skin; R20.2 Paresthesia of skin
CPT/HCPCS: 99213

== ENCOUNTER → 2024-04-01 10:08 | Outpatient (BNVA) | payer OTHER, SELFPAY | PROVIDERS: PCP Pediatrics ==

== ENCOUNTER 2024-04-20 07:30 | Outpatient (RCR) | payer OTHER, SELFPAY ==
--- NOTE | 2024-04-08 10:22 | MHC.OT.EP ---
[address] [phone] Occupational Therapy Plan of Care Patient Name: Laura Gutierrez Date of Evaluation: 04/08/24 Diagnosis: Right hand pain Pain Location: Tenderness to palpate over D3 A1 neha, small palpable mass/adhesion in hand more notable with active movement 2/10 resting 8/10 morning or w/ gripping Pain Score: 8 Pain Scale Used: Numeric (0 - 10) Aggravating Factors: Tender to palpate, gripping Alleviating Factors: Ice, Ibuprofen, heat Assessment: 43 yo female presents w/ right hand pain, started a couple months ago when she woke w/ hand stiffness and difficulty opening her fingers. She reports hx of B/L hand numbness for longer period of time, but the pain is a new issue. On assessment today, symptoms appear to be consistent with stage one trigger finger in right long finger. provocative testing for carpal tunnel is negative at this time and she has no sensory loss or weakness in median nerve distribution. We have fit her with two types of finger splints to limit full finger flexion and educated on joint protection and activity modification. We will continue w/ brief course of therapy for Ind w/ self management with goal of minimizing pain and restoring full function. Frequency and Duration: The patient will be seen 2x/wk for 2 weeks Short Term Goals: Ind w/ orthosis wear schedule (remove for hygiene and HEP only) Ind w/ self passive composite flex to right hand Pt to report ease w/ daqily activities w/ orthosis wear Pt to report ease of waking right hand/finger pain and stiffness [employer] Goals: same as above Treatment Plan: Therapeutic Exercise Therapeutic Activity Home Exercise Program Splinting Patient Education Edema Control ADL Training Ultrasound Paraffin Fluidotherapy MHP Cold Packs Joint Mobilization Soft Tissue Mobilization Electronically Signed By: Cora Medrano OTR/L CHT Please Sign and return to therapist. Thank you once again for your referral.
--- NOTE | 2024-04-20 10:27 | MHC.OT.DC ---
[address] [phone] F: [phone] Occupational Therapy Discharge Note Patient Name: Laura Gutierrez Provider: Epifanio Goodrich PA-C Diagnosis: Right hand pain Date of Evaluation: 04/08/24 Treatments to Date: 3 Discharge Summary: Laura was referred to OT with right hand pain, consistent with early trigger finger in middle finger. We placed her in MCP block orthosis for nighttime and Oval 8 with work tasks. She is doing well, no current triggering and good follow through w/ management techniques. She has reported some nighttime CTS symptoms, I have recommended trailing nighttime orthosis. No further OT needed at this time. Electronically Signed By: Cora Medrano OTR/L Please Sign and return to therapist, thank you for your referral.
== END 2024-04-20 10:28 | disposition home or self-care (01) ==
LOC: HO.OT 07:30
PROVIDERS: PCP Pediatrics
DX: M79.644 Pain in right finger(s) (principal)
CPT/HCPCS: 97035; 97140; 97165; 97760

== ENCOUNTER 2024-06-02 15:08 | Outpatient (REF) | payer OTHER, SELFPAY ==
[2024-06-02 17:24] LABS: Calcium 9.4 mg/dL (8.4-10.2); Phosphorus 4.1 mg/dL (2.7-4.5); Uric Acid 5.3 mg/dL (2.4-5.7)
[2024-06-02 23:02] LABS: Erythrocyte Sedimentation Rate 3 MM/HR (0-20)
[2024-06-03 13:03] LABS: Lyme Abs Screen <0.90 index
[2024-06-07 09:19] LABS: Cyclic Citrullinated Peptide <16 UNITS
[2024-06-07 11:33] LABS: Anti Nuclear Antibody Screen NEGATIVE (NEGATIVE)
== END 2024-06-02 15:09 | disposition home or self-care (01) ==
LOC: HO.LAB 15:08
PROVIDERS: Internal Medicine Pulmonary Disease; PCP Pediatrics; Visit Provider Hospitalist
DX: M79.672 Pain in left foot (principal); M19.90 Unspecified osteoarthritis, unspecified site
CPT/HCPCS: 36415; 82310; 84100; 84550; 85652; 86038; 86200; 86617; 86618

== ENCOUNTER 2024-06-03 07:50 | Emergency (ER) | payer OTHER, SELFPAY ==
--- NOTE | ~2024-06-03 | XR_ITS ---
EXAMINATION: XR FOOT, RIGHT CLINICAL INFORMATION: Right foot pain/swelling COMPARISON: None available. TECHNIQUE: AP, lateral, and oblique views of the right foot. FINDINGS: Dorsal and medial soft tissue swelling. The bones and soft tissues are normal. No fracture. Alignment is anatomic. Joint spaces are maintained. XR/XR foot RT 2V IMPRESSION: Dorsal and medial soft tissue swelling. No acute fractures or dislocations. Electronically signed by: Travis Rincon DO 06/03/2024 10:13 AM [facility]
--- NOTE | 2024-06-03 08:04 | ED.EXTPRO ---
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 No fevers, n/v. No trauma but did notice rash between toes and tried to treat athletes foot. She now notes blister between 2nd and 3rd digit. She denies hx of MRSA. No pain or swelling into the calf. No hx of gout MD Complaint: extremity pain Onset (ago): day(s) (3) Pain Consistency: constant Location: right and other (foot) Quality: aching Radiation: none Relieving factors: rest Exacerbating factors: weight bearing and palpation Associated symptoms: rash Related Data Previous Rx's ?Medication ?Instructions ?Recorded azithromycin 250 mg tablet See Rx Instructions PO .COMPLEX #6 04/20/24 tabs prednisone 20 mg tablet 40 mg (2 x 20 mg) PO DAILY #10 tabs 04/20/24 cephalexin 500 mg capsule 500 mg PO QID 7 days #28 caps 06/03/24 doxycycline hyclate 100 mg capsule 100 mg PO BID 7 days #14 caps 06/03/24 fluconazole 150 mg tablet 150 mg PO Q3D 2 doses #2 tabs 06/03/24 Allergies Allergy/AdvReac Type Severity Reaction Status Date / Time No Known Allergies Allergy Verified 06/03/24 08:13 [No Known Allergies*] Review of Systems Review of Systems: Constitutional : No Fever, No Chills ENT/Mouth : No Ear Pain, No Hoarseness, No sore throat Eyes: No Eye Pain, No Swelling, No Redness, No Foreign Body Cardiovascular : No Chest Pain, No SOB Respiratory : No Cough, No Dyspnea Gastrointestinal : No Nausea, No Vomiting, No Diarrhea, No abdominal Pain Genitourinary : No Dysuria, No Hematuria Musculoskeletal : positive joint pain, No Myalgias, No Joint Swelling Skin : No Skin lacerations, pos rash Neuro : No Weakness, No Numbness, No Loss of Consciousness, No Dizziness, No Headache All other systems reviewed and are negative PMFSH Past Medical History Attestation statement: The following information was validated with the patient. 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 Oriented X3. No acute distress. Eyes: Pupils equal, round and reactive to light. ENT: Pharynx normal. Neck: Normal inspection. Neck supple. CVS: Normal heart rate and rhythm. Pulses normal. Respiratory: No respiratory distress. Breath sounds normal. Abdomen: Soft and nontender. Skin: Skin warm and dry. Normal skin color. Normal skin turgor. Extremities: No lower extremity edema. R dorsum of foot redness and swelling overlying dorsum of foot, small yellowish blister no abscess between dorsum of 2nd/3rd foot, pulses intact, no joint effusion and no calf pain or swelling Neuro: Oriented X 3. No motor deficit. No sensory deficit. Medications Administered Discontinued Medications Generic Name Dose Route Start Last Admin Trade Name Freq PRN Reason Stop Dose Admin Cephalexin HCl 500 mg 06/03/24 08:18 06/03/24 08:26 Cephalexin 500 Mg Capsule PO 06/03/24 08:19 500 mg ONCE ONE Administration Medical Decision Making Medical Decision Making MDM Narrative: 43 yo female with PMH of arthralgias here with c/o R foot pain and swelling with warmth and erythema at this time exam concerning for cellulitis - she has no systemic symptoms no pain into the leg or swelling to suggest DVT she is NV intact. Will obtain xray and start on dual therapy No hx of gout and it is not involving joint Differential Diagnosis Differential Diagnoses: The differential diagnosis associated with the presentation includes arthralgia, cellulitis Admission/Observation Consideration of admission/observation: Escalation of care including admission/observation considered no systemic symptoms can be managed as outpatient with oral abx Independent Interpretation I performed an independent interpretation of an: Plain X-Ray Radiology Impression Discussion of test interpretation with radiology: I have reviewed the radiologist's reading. External Record Review External record reviewed: Office record Prescription Management I considered prescription management with: Antibiotic Discharge Plan Discharge Clinical Impression: Cellulitis Patient Disposition: Home, Self-Care Instructions: Cellulitis (ED) Additional Instructions: return for worsening pain, fevers, red streaks up the leg or any other concerns no fracture on initial xray will call you if final result different On a cephalosporin?antibiotic, softer bowel movements are to be expected. Call your provider if you move your bowels more than 4 times a day, your bowel movements are almost all liquid, or you get a rash.?? On doxycycline, do not take pills immediately before going to bed and swallow pills with plenty of water. Avoid direct sunlight, iron, antacids, and Pepto Bismol. Call your provider if you develop new ringing in your ears, new problems hearing, dizziness, difficulty swallowing, rash, abdominal discomfort, nausea, or diarrhea.? Prescriptions: New doxycycline hyclate 100 mg capsule 100 mg PO BID 7 Days Qty: 14 0RF cephalexin 500 mg capsule 500 mg PO QID 7 Days Qty: 28 0RF fluconazole 150 mg tablet 150 mg PO Q3D Qty: 2 0RF Rx Instructions: may repeat second dose 72 hrs after first dose if symptoms persist No Action prednisone 20 mg tablet 40 mg PO DAILY Qty: 10 0RF azithromycin 250 mg tablet See Rx Instructions PO .COMPLEX Qty: 6 0RF Rx Instructions: For 250 mg dose pack: take 500 mg today (day 1), then 250 mg for 4 days (days 2-5) PO Stand Alone Forms: Work/School Release Print Language: Greenlandic
[2024-06-03 08:11] VITALS: BP 152/95; PULSE 82; RESP 18; TEMP 36.7; O2SAT 97; BMI 28.2
[2024-06-03] MEDS: cephALEXin 500 MG CAPSULE PO (08:26)
[2024-06-03 09:33] VITALS: BP 134/82; PULSE 80; RESP 18; TEMP 36.8; O2SAT 97
[2024-06-03 09:34] VITALS: BP 134/80; PULSE 80; RESP 18; TEMP 36.8; O2SAT 97
== END 2024-06-03 09:35 | disposition home or self-care (01) ==
PROVIDERS: Emergency Provider Emergency Medicine; PCP Pediatrics
DX: L03.115 Cellulitis of right lower limb (principal); M79.671 Pain in right foot; F17.210 Nicotine dependence, cigarettes, uncomplicated
CPT/HCPCS: 73620; 99283; 99284

== ENCOUNTER 2024-06-16 14:21 | Outpatient (REF) | payer OTHER, SELFPAY ==
--- NOTE | ~2024-06-16 | MM_ITS ---
EXAMINATION: MM DIAGNOSTIC DIGITAL BREAST TOMOSYNTHESIS, BILATERAL CLINICAL INFORMATION: Diagnostic exam; fin six-month follow-up for two-year stability of probably benign calcifications left breast. Due for yearly. COMPARISON: Mammography: 11/27/2023, 05/25/2023, 10/30/2022, 04/30/2022, 04/24/2022, (BI-RADS 0). TECHNIQUE: Digital breast tomosynthesis is performed in both the craniocaudal and mediolateral oblique views along with computer-aided detection (CAD). Synthesized 2D images are generated from the tomosynthesis. In addition a standard views, 2-D spot magnification left ML and left CC x2 views were obtained. FINDINGS: The breasts are heterogeneously dense, which may obscure small masses (ACR BI-RADS breast composition Category c). Stable scattered calcifications with regional distribution, throughout the left heterogeneously dense breast parenchyma. No increasing calcifications or aggressive change. No tight grouping. These subtle findings/calcifications are completely unchanged and remain probably benign. Otherwise, there are no suspicious masses, suspicious grouped calcifications, or areas of architectural distortion in either breast. The heterogeneously dense parenchymal pattern is stable from prior exams. No skin or axillary abnormalities. MM/MM tomosynthesis diagnostic BI IMPRESSION: -No findings suspicious for malignancy in either breast. -Benign calcifications left breast. No further follow-up recommended. -Recommend the patient resume routine annual screening to include both breasts. ASSESSMENT: BI-RADS BI-RADS 2 - Benign Findings RECOMMENDATION: 1 year F/U Results were provided to the patient at time of visit by the technologist. This patient's information was entered into a reminder system with a target due date for their next mammogram. Electronically signed by: Lionel Harris MD 06/16/2024 03:06 PM [facility]
== END 2024-06-16 14:22 | disposition home or self-care (01) ==
LOC: HO.MAMMO 14:21
PROVIDERS: PCP Pediatrics; Visit Provider Pediatrics
DX: R92.8 Other abnormal and inconclusive findings on diagnostic imaging of breast (principal)
CPT/HCPCS: 77062; 77066

== ENCOUNTER → 2024-06-16 14:30 | Outpatient (BNV) | payer OTHER, SELFPAY | PROVIDERS: PCP Pediatrics; Visit Provider Radiology Diagnostic Radiology | DX: R92.1 Mammographic calcification found on diagnostic imaging of breast (principal); R92.333 Mammographic heterogeneous density, bilateral breasts | CPT/HCPCS: 77062; 77066 ==

== ENCOUNTER 2024-06-21 08:31 | Day surgery (SDC) | payer OTHER, SELFPAY ==
[2024-06-17 09:13] VITALS: BMI 28.2
[2024-06-21 08:45] VITALS: BP 131/86; PULSE 90; RESP 18; TEMP 36.1; O2SAT 98
[2024-06-21 09:05] LABS: UPreg QC Valid YES; Urine Pregnancy NEGATIVE (NEGATIVE)
[2024-06-21] MEDS: Lactated Ringers 1,000 ML 50 ML IVCONT (09:06)
--- NOTE | 2024-06-21 09:34 | HO.ANESPROP2 ---
HPI - Anesthesia Eval Consult details Narrative: for colon screen PMFSH Active Problems Active Problems: All Active Problems Arthritis (Acute) Chronic cough (Acute) Numbness and tingling in both hands (Acute) Pain of right middle finger (Acute) Encounter for screening colonoscopy (Acute) Cough (Acute) Labral tear of left hip joint (Acute) Hip pain, left (Acute) SARS-associated coronavirus exposure (Acute) Left foot pain (Acute) Mass of left ankle (Acute) Left ankle injury (Acute) COVID-19 (Acute) Past Medical History Medical History Arthritis Chronic cough COVID-19 Family History Family History Father Hypothyroidism Cardiac disease Mother Hypothyroidism Family history of problems with anesthesia: No Surgical History Surgical History Hx of prior ablation treatment Hx of section History of Problems with Anesthesia: No Social History Social History Household Members Other:: - 2n kids Patient Tobacco Use Status: Current everyday Tobacco user Cigarette Packs Per Day: 0.5 Patient Interested in Nicotine Replacement: No Patient Given Instructions on How to Stop Smoking: No Second Hand Smoke Exposure: No Have you been hit, kicked, punched, or otherwise hurt by someone within the past year? 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 Allergies Allergy/AdvReac Type Severity Reaction Status Date / Time No Known Allergies Allergy Verified 06/03/24 08:13 [No Known Allergies*] Active Medications: Current Medications Lactated Ringer's (Lr) 1,000 mls @ 50 mls/hr IVCONT .Q20H JENNI Last Admin: 06/21/24 09:06 Dose: 50 mls/hr Home Medications ?Medication ?Instructions ?Recorded ?Confirmed ?Last Taken ?Type No Known Home Meds 06/21/24 06/21/24 Unknown History Exam Height,Weight and Vital Signs: Height 5 ft 2 in Weight 69.853 kg Last Vital Signs Temp 97 F 06/21/24 08:45 Pulse 90 06/21/24 08:45 Resp 18 06/21/24 08:45 BP 131/86 06/21/24 08:45 Pulse Ox 98 06/21/24 08:45 O2 Del Method Room Air 06/21/24 08:45 Pertinent Lab Results Pertinent Lab Results: Laboratory Tests 06/21/24 08:46 Urine Test NEGATIVE Airway Mallampati Class: II TM Dist: >3cm Neck ROM: Full Heart: rrr Lungs: cta Assessment and Plan Assessment Anesthesia Assessment: Anesthesia Plan Discussed Final Anesthetic Review Family History of Problems with Anesthesia: No History of Problems with Anesthesia: No NPO: Yes ASA Class: II Final Preanesthetic Review: No Changes in Pt Med Stat, Meds/Allgs Chart Reviewed, Consent Obtained/Reviewed and Anes Risks/Benef Reviewed Patient Risk: Low Procedure Risk: Low Anesthetic Plan Anesthetic Plan: MAC: Disposition: Standard PACU
--- NOTE | 2024-06-21 09:56 | MHC.SHP ---
Pre-Procedural Eval Section A - 24 Hr Update-Section A only Date of Service: 06/21/24 Section B - Complete if H&P > 30 days Chief Complaint: Encounter for screening for malignant neoplasm of Details of Present Illness: Hx of prior ablation treatment Hx of section Present Medications: see Short Stay Collaborative assessment Allergies: Allergies Allergy/AdvReac Type Severity Reaction Status Date / Time No Known Allergies Allergy Verified 06/03/24 08:13 [No Known Allergies*] Review of Systems Review of Systems Comment: Ten point ROS negative Exam Exam Comment: Gen appear: No acute distress HEENT: no icterus Chest: No overt resp distress Abd: soft, nontender, nondistended Psych: Stable affect, answering questions appropriately Neuro: A/Ox3 noted to move all extremities spontaneously Ext: no peripheral edema Plan Diagnosis/Plan: Unchanged I have reviewed the history and physical and performed a pertinent physical examination on my patient. No changes have occurred unless specified. Time Spent With Patient Time: Total time managing care of this patient today ____ minutes.
--- NOTE | 2024-06-21 10:06 | P.OPN-COLO_ITS ---
Colonoscopy Operative Note Operative Note Date of Service: 06/21/24 Narrative: Procedure: Colonoscopy Indication: Screening Endoscopist: Chiqui Owens MD Anesthesia Provider: Sada Kay CRNA Anesthesia type: MAC Instrument: Olympus [id number]-[id number] Consent: Indication, risks vs benefits, and alternatives were discussed with the patient who gave written informed consent to proceed. EKG, pulse, pulse oximetry and blood pressure were monitored throughout the procedure. Please see anesthesia flowsheet. Procedure: The patient was brought to the procedure room and placed in the left lateral decubitus position. IV medications were administered by the anesthesia provider in attendance. A digital rectal exam was performed which was normal. A distal attachment cap was affixed to the tip of the colonoscope which was then inserted through the anus and advanced through the colon to the cecum at cm,and terminal ileum. Appendiceal orifice and ileocecal valve were identified. Mucosa was carefully examined under high definition white light as the instrument was slowly withdrawn in a retrograde panoramic fashion. Retroflexion was performed in rectum. The procedure was not difficult. There were no immediate obvious complications. The quality of the prep was BBPS: 3+2+3 = adequate Withdrawal time 12 minutes. Limitations: No limitations. Findings: Mucosa: A small 5 mm AVM noted in ascending colon. This was ablated with APC using a straight-fire catheter. Remaining mucosa normal to cecum and terminal ileum. [ Protruding lesions: * 1 sessile polyp of size 5 mm in transverse colon. Cold snare polypectomy was performed. The polyp was completely removed and retrieved. * 1 sessile polyp of size 3 mm in sigmoid colon. Cold snare polypectomy was performed. The polyp was completely removed and retrieved. * Medium internal hemorrhoids without stigmata of recent bleeding. Impression: 1. Transverse colon AVM (APC) 2. Total of 2 polyps removed 3. Internal hemorrhoids Recommendations: - Follow path results. - Repeat colonoscopy in 5-7 years if polyps are adenomas or sessile serrated.
[2024-06-21 10:41] VITALS: BP 113/73; PULSE 88; RESP 16; TEMP 36.1; O2SAT 97
[2024-06-21 10:56] VITALS: BP 115/85; PULSE 71; RESP 16; TEMP 36.4; O2SAT 98
== END 2024-06-21 11:20 | disposition home or self-care (01) ==
PROVIDERS: Anesthesiology; PCP Pediatrics; Visit Provider Internal Medicine
PROC: 0DJD8ZZ Inspection of Lower Intestinal Tract, Via Natural or Artificial Opening Endoscopic (ICD-10-PCS; CPT 45378; principal; 2024-06-21 10:10)
DX: Z12.11 Encounter for screening for malignant neoplasm of colon (principal); D12.3 Benign neoplasm of transverse colon; K55.20 Angiodysplasia of colon without hemorrhage; K64.8 Other hemorrhoids; F17.210 Nicotine dependence, cigarettes, uncomplicated
CPT/HCPCS: 45388; 45385; 81025; 88305; J2003; J2250; J2704

== ENCOUNTER → 2024-06-21 08:31 | Outpatient (BNV) | payer OTHER, SELFPAY | PROVIDERS: PCP Pediatrics; Visit Provider Internal Medicine | DX: Z12.11 Encounter for screening for malignant neoplasm of colon (principal); D12.3 Benign neoplasm of transverse colon; K63.5 Polyp of colon; Q27.33 Arteriovenous malformation of digestive system vessel; K64.8 Other hemorrhoids | CPT/HCPCS: 45385; 45388 ==

== ENCOUNTER → 2024-07-21 07:59 | Outpatient (REF) | payer OTHER, SELFPAY | LOC: HO.SL 07:59 | PROVIDERS: PCP Pediatrics; Visit Provider Pediatrics | DX: R06.83 Snoring (principal); G47.8 Other sleep disorders | CPT/HCPCS: 95806 ==

== ENCOUNTER → 2024-07-21 19:00 | Outpatient (BNV) | payer OTHER, SELFPAY | PROVIDERS: PCP Pediatrics; Visit Provider Internal Medicine | DX: R06.83 Snoring (principal); G47.10 Hypersomnia, unspecified | CPT/HCPCS: 95806 ==

== ENCOUNTER 2024-07-29 09:51 | Outpatient (REF) | payer OTHER, SELFPAY ==
--- NOTE | ~2024-07-29 | XR_ITS ---
EXAMINATION: XR CERVICAL SPINE 4-5 VIEWS HISTORY: M54.12 - Radiculopathy, cervical region COMPARISON: There are no prior studies for comparison. FINDINGS: AP, lateral, bilateral oblique, and open-mouth odontoid views of the cervical spine are submitted. Osseous mineralization is normal. Seven cervical vertebral bodies are identified maintaining normal height and alignment without evidence of fracture or subluxation. There is mild degenerative disc disease at C5-6 with disc space narrowing and posterior spurring. There is mild narrowing of the bilateral C5-6 neural foramen secondary to uncovertebral joint hypertrophy. The remaining neural foramen are patent. The odontoid and lateral masses of C1 are intact. There is no prevertebral soft tissue swelling. XR/XR cervical spine 4V IMPRESSION: Mild degenerative changes at C5-6 as described. Electronically signed by: Ovidio Weaver MD 08/09/2024 12:20 PM [facility]
== END 2024-07-29 09:52 | disposition home or self-care (01) ==
LOC: HO.XRAY 09:51
PROVIDERS: PCP Pediatrics; Visit Provider Nurse Practitioner Family
DX: M47.812 Spondylosis without myelopathy or radiculopathy, cervical region (principal); R20.2 Paresthesia of skin; M79.609 Pain in unspecified limb; M54.12 Radiculopathy, cervical region
CPT/HCPCS: 72050

== ENCOUNTER 2024-07-29 09:51 | Outpatient (AMB) | payer OTHER, SELFPAY ==
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
[2024-07-29 09:59] VITALS: BP 147/86; PULSE 79; BMI 29.6
== END 2024-07-29 10:42 | disposition home or self-care (01) ==
PROVIDERS: PCP Pediatrics; Visit Provider Nurse Practitioner Family
DX: M54.12 Radiculopathy, cervical region (principal); Z87.828 Personal history of other (healed) physical injury and trauma; M79.609 Pain in unspecified limb; R20.2 Paresthesia of skin; M62.838 Other muscle spasm; M47.812 Spondylosis without myelopathy or radiculopathy, cervical region
CPT/HCPCS: 99214

== ENCOUNTER → 2024-07-29 13:12 | Outpatient (BNV) | payer OTHER, SELFPAY | PROVIDERS: PCP Pediatrics; Visit Provider Radiology Diagnostic Radiology | DX: M54.12 Radiculopathy, cervical region (principal) | CPT/HCPCS: 72050 ==

== ENCOUNTER → 2024-08-02 07:48 | Outpatient (BNV) | payer OTHER, SELFPAY | PROVIDERS: PCP Pediatrics; Visit Provider Radiology Diagnostic Radiology | DX: M47.892 Other spondylosis, cervical region (principal); M50.221 Other cervical disc displacement at C4-C5 level | CPT/HCPCS: 72141 ==

== ENCOUNTER 2024-08-02 07:52 | Outpatient (REF) | payer OTHER, SELFPAY ==
--- NOTE | ~2024-08-02 | MR_ITS ---
EXAMINATION: MR CERVICAL SPINE WITHOUT CONTRAST CLINICAL INFORMATION: Radiculopathy, cervical region. COMPARISON: None available. TECHNIQUE: MRI of the cervical spine was obtained using routine sequences without contrast. FINDINGS: Craniocervical junction is intact. Reverse curvature apex at C6. Multilevel marginal osteophyte formation and disc desiccation, C3 C7 more conspicuous at C5-6 and C6-7 levels. C2-3: No disc herniation. No neuroforamina stenosis. C3-4: No disc herniation. No neuroforamina stenosis. C4-5: Left subarticular disc herniation. No cord compression. No cord signal abnormality. No neuroforamina stenosis. C5-6: Broad-based disc osteophyte complex formation abutting the cord resulting in ventral CSF effacement of the thecal sac. No cord compression. No cord signal abnormality. Left neuroforamina narrowing on a degenerative basis. C6-7: Central/left subarticular disc herniation resulting in ventral deformity of the spinal cord. No cord signal abnormality. No neuroforamina stenosis. C7-T1: No disc herniation. No neuroforamina stenosis. No prevertebral compartment hematoma, mass or fluid collection. Flow-void signal within the main vessels is normal. Left vertebral artery slightly dominant. MR/MR cervical spine wo con IMPRESSION: Multilevel cervical spondylosis, C4-5 to C6-7, more conspicuous at C5-6. Central/left subarticular disc herniation C6-7 abutting the cord without cord edema and or myelopathy. Left subarticular disc herniation C4-5 without cord compression, edema and or myelopathy. Electronically signed by: Winston Arredondo MD 08/02/2024 10:11 AM [facility]
== END 2024-08-02 07:53 | disposition home or self-care (01) ==
LOC: HO.MRI 07:52
PROVIDERS: PCP Pediatrics; Visit Provider Nurse Practitioner Family
DX: M54.12 Radiculopathy, cervical region (principal); R20.2 Paresthesia of skin; M79.609 Pain in unspecified limb; Z87.828 Personal history of other (healed) physical injury and trauma
CPT/HCPCS: 72141

== ENCOUNTER 2024-08-12 10:54 | Outpatient (REF) | payer OTHER, SELFPAY ==
--- NOTE | ~2024-08-12 | US_ITS ---
CLINICAL HISTORY: abnormal vaginal bleeding US pelvis transvaginal and transabdominal Comparison: None Findings: Transvaginal and transabdominal scanning performed. Anteverted uterus is 8.8 cm length. Normal myometrium. Fluid within the cervical canal. Endometrium 7 mm thickness. Right ovary 2.0 x 1.3 x 1.3 cm. Left ovary 2.4 x 2.6 x 1.8 cm. Normal color Doppler of both ovaries. No free fluid. IMPRESSION: 1. Unremarkable appearance of the uterus and ovaries. Fluid within the cervical canal. This document has been electronically signed by: Matilda Harris MD on 08/13/2024 06:57:59
== END 2024-08-12 10:55 | disposition home or self-care (01) ==
LOC: HO.US 10:54
PROVIDERS: PCP Pediatrics; Visit Provider Student in an Organized Health Care Education/Training Program
DX: N93.9 Abnormal uterine and vaginal bleeding, unspecified (principal)
CPT/HCPCS: 76830; 76856

== ENCOUNTER → 2024-08-12 11:09 | Outpatient (BNV) | payer OTHER, SELFPAY | PROVIDERS: PCP Pediatrics; Visit Provider Radiology Diagnostic Radiology | DX: N93.9 Abnormal uterine and vaginal bleeding, unspecified (principal) | CPT/HCPCS: 76830; 76856 ==

== ENCOUNTER 2024-08-25 15:26 | Outpatient (REF) | payer OTHER, SELFPAY ==
--- NOTE | 2024-08-25 15:33 | EMG_ITS ---
Chief complaint: Sudden onset numbness especially on right 4th digit, went on for 2 months until treated with oral steroid. Slightly improved but seems to be coming back again. Much milder symptoms on left side. Neck tightness. Reason for referral: Evaluate for Carpal Tunnel Syndrome versus radiculopathy Referred by: Epifanio RODRIGUEZ Procedure done: Bilateral upper extremities NCS/EMG Precautions and/or limitations: Some apprehension over needle The limb temperature was monitored continuously and remained between 32-36 degrees C during the performance of the NCS. Ulnar motor NCS was performed with moderate elbow flexion between 70-90 degrees, with across-elbow distance of 10 cm. Nerve Conduction Studies Anti Sensory Summary Table ?Stim Site NR Onset (ms) Norm Onset (ms) Peak (ms) Norm Peak (ms) O-P Amp (?V) Norm O-P Amp Site1 Site2 Delta-0 (ms) Dist (cm) Dustin (m/s) Norm Dustin (m/s) Left Median Anti Sensory (2nd Digit) Wrist ? 2.4 2.9 <3.6 67.0 >10 Wrist 2nd Digit 2.4 14.0 58 Right Median Anti Sensory (2nd Digit) Wrist ? 2.2 4.2 <3.6 31.8 >10 Wrist 2nd Digit 2.2 14.0 64 Right Radial Anti Sensory (Thumb) Forearm ? 1.6 2.3 <3.1 29.1 Forearm Thumb 1.6 0.0 Left Ulnar Anti Sensory (5th Digit) Wrist ? 2.2 2.8 <3.7 37.0 >15.0 Wrist 5th Digit 2.2 14.0 64 Right Ulnar Anti Sensory (5th Digit) Wrist ? 2.1 2.9 <3.7 20.3 >15.0 Wrist 5th Digit 2.1 14.0 67 Motor Summary Table ?Stim Site NR Onset (ms) Norm Onset (ms) O-P Amp (mV) Norm O-P Amp iAmp (mV) Amp (1st) (%) Site1 Site2 Delta-0 (ms) Dist (cm) Dustin (m/s) Norm Dustin (m/s) Left Median Motor (Abd Poll Brev) Wrist ? 3.2 <3.9 9.5 >4.5 10.7 100.0 Elbow Wrist 3.1 17.0 55 >45 Elbow ? 6.3 7.9 9.4 83.2 Right Median Motor (Abd Poll Brev) Wrist ? 4.5 <3.9 9.8 >4.5 11.4 100.0 Elbow Wrist 2.8 16.5 59 >45 Elbow ? 7.3 9.4 11.2 95.9 Left Ulnar Motor (Abd Dig Minimi) Wrist ? 2.6 <3.0 7.9 >5 8.9 100.0 B Elbow Wrist 2.5 15.0 60 >45 B Elbow ? 5.1 7.8 9.0 98.7 A Elbow B Elbow 1.2 10.0 83 >45 A Elbow ? 6.3 7.8 8.9 98.7 Right Ulnar Motor (Abd Dig Minimi) Wrist ? 2.7 <3.0 6.2 >5 7.3 100.0 B Elbow Wrist 2.6 17.0 65 >45 B Elbow ? 5.3 6.2 7.2 100.0 A Elbow B Elbow 1.1 10.0 91 >45 A Elbow ? 6.4 6.4 7.4 103.2 EMG ?Side Muscle Nerve Root Ins Act Fibs Psw Amp Dur Poly Recrt Int Pat Comment Right 1stDorInt Ulnar C8-T1 Nml Nml Nml Nml Nml 0 Nml Complete Right FlexCarRad Median C6-7 Nml Nml Nml Nml Nml 0 Nml Complete Right Biceps Musculocut C5-6 Nml Nml Nml Nml Nml 0 Nml Complete Right Triceps Radial C6-7-8 Nml Nml Nml Nml Nml 0 Nml Complete Right Deltoid Axillary C5-6 Nml Nml Nml Nml Nml 0 Nml Complete FINDINGS: Right median motor nerve showed prolonged distal latency, normal amplitude and normal conduction velocity. Right median sensory nerve showed prolonged peak latency. All other nerves tested were within normal. Concentric needle EMG was performed in selected muscles of the right upper extremity. Study did not reveal signs of electric abnormalities as shown in the table above. IMPRESSION: 1. This is an abnormal study. 2. There is electrodiagnostic evidence for right moderate-severe median neuropathy at the wrist, consistent with carpal tunnel syndrome. 3. There is no electrodiagnostic evidence for ulnar neuropathy, brachial plexopathy, or cervical radiculopathy. 4. No electrodiagnostic evidence for left Carpal Tunnel Syndrome. Thank you for your kind referral. Cristel Mckoy MD, KIMBERLY Board Certified, [place] Board [employer] and Rehabilitation (ABPMR) Board Certified, [place] Board of Electrodiagnostic Medicine (ABEM) CODIN [phone] [facility]
--- OUTSIDE RECORDS SUMMARY | 2024-08-25 19:13 | XMS_ITS | Clinical Summary ---
Author Organization [address] Address [address] [place] [id number] Phone Care Team Providers Care Craniologist Name Role Phone Lalita Rice DO Primary Care Provider Medications No known medications Social History Tobacco Use Types Packs/Day Years Used Date Smoking Tobacco: Never Assessed Comments Unknown Sex and Gender Information Value Date Recorded Sex Assigned at Not on file Legal Sex Female 3:18 PM EDT Gender Identity Not on file Sexual Orientation Not on file Plan of Treatment Health Maintenance Due Date Last Done Comments HIV screening 1991 Hepatitis C screening 1996 Cervical cancer screening 1999 Breast cancer screening 2018 Lipid disorder screening 2018 Tetanus adult (Td q 10,TDAP once) 02/05/2021 02/05/2011 Colon cancer screening, Colonoscopy 2023 Diabetes screening 2023 Influenza vaccine 02/25/2024 05/16/2021, , 05/17/2019, Additional history exists Covid-19 vaccine series (2023- season) 2024 09/08/2020, 08/11/2020 RSV Discussion (1 - 1-dose 75+ series) 2053 Meningococcal Vaccine Aged Out No monica leonides eligible based on patient's age to complete this topic Pneumococcal Vaccine Aged Out No long er eligible based on patient's age to complete this topic Insurance [facility] Care Teams Craniologist Relationship Specialty Start Date End Date Lalita Rice DO [address] [place] [phone] PCP - General Pediatrics 04/08/23
== END 2024-08-25 15:27 | disposition home or self-care (01) ==
LOC: HO.NEURO 15:26
PROVIDERS: PCP Pediatrics
DX: R20.0 Anesthesia of skin (principal); R20.2 Paresthesia of skin
CPT/HCPCS: 95886; 95911

== ENCOUNTER 2024-08-28 11:19 | Emergency (ER) | payer OTHER, SELFPAY ==
--- NOTE | ~2024-08-28 | XR_ITS ---
CLINICAL HISTORY: Left shoulder pain 3 view left shoulder Comparison: None Findings: No fractures or dislocations. No significant loss of joint space or osteophytes. No erosions. No radiopaque foreign body. IMPRESSION: 1. No acute findings This document has been electronically signed by: Olegario Hinkle MD on 08/28/2024 12:31:49
[2024-08-28 11:29] VITALS: BP 147/97; PULSE 95; RESP 19; TEMP 36.6; O2SAT 98; BMI 29.8
--- NOTE | 2024-08-28 11:31 | ECG_ITS ---
Test Reason : LEFT SHOULDER PAIN Blood Pressure : */* mmHG Vent. Rate : 79 BPM Atrial Rate : 79 BPM P-R Int : 152 ms QRS Dur : 76 ms QT Int : 380 ms P-R-T Axes : 67 61 47 degrees QTcB Int : 435 ms Normal sinus rhythm Possible Left atrial enlargement Borderline ECG When compared with ECG of 31-Oct-2019 13:39, No significant change was found Referred By: Jose Muhammad Electronically Signed By: Ezequiel Singh
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
[2024-08-28 11:49] LABS: MANUAL DIFF FLAG NO
[2024-08-28 11:50] LABS: Basophils Percent Auto 0.9 % (0-2); Eosinophils Absolute Auto 0.1 X10*3/uL (0.0-0.4); Eosinophils Percent Auto 1.1 % (0-4); Hematocrit 41.4 % (37.0-47.0); Hemoglobin 14.1 g/dl (12.0-16.0); Imm Gran Abs Auto 0.01 X10*3/uL (0.00-0.03); Imm Gran Pct Auto 0.2 % (0.0-0.4); Lymphocytes Absolute Auto 1.1 X10*3/uL (1.2-4.9); Lymphocytes Percent Auto 22.8 % (20-40); Mean Corpuscular HGB Conc 34.1 g/dl (31.0-35.0); Mean Corpuscular Hemoglobin 31.5 pg (27.0-33.0); Mean Corpuscular Volume 92.6 fL (80.0-98.0); Monocytes Absolute Auto 0.6 X10*3/uL (0.1-1.2); Monocytes Percent Auto 12.1 % (2-11); Neutrophils Absolute Auto 2.9 x10*3/uL (2.0-8.3); Neutrophils Percent Auto 62.9 % (45-73); Platelet Count 214 X10*3/uL (160-400); Red Blood Count 4.47 X10*6/uL (4.20-5.50); Red Cell Distribution Width 12.9 % (11.0-16.0); White Blood Count 4.6 X10*3/uL (4.8-10.8)
[2024-08-28 12:11] LABS: Alanine Aminotransferase 44 U/L (0-31); Albumin Level 4.5 g/dL (3.5-5.0); Alkaline Phosphatase 62 U/L (39-117); Anion Gap 14 (12-20); Aspartate Amino Transferase 32 U/L (5-31); Bilirubin Total 0.3 mg/dL (0.0-1.0); Blood Urea Nitrogen 11 mg/dL (9-16); Carbon Dioxide 21 mmol/L (22-29); Chloride 109 mmol/L (96-108); Creatinine Clr Calc Pharmacy 91.5; Estimated Glomerular Filt Rate > 60; Glucose Random 95 mg/dL (60-115); Potassium 4.6 mmol/L (3.3-5.1); Sodium 139 mmol/L (135-145); Total Protein 7.7 g/dL (6.5-8.0)
[2024-08-28 12:19] LABS: Troponin-I High Sensitivity < 2.7 ng/L (<3.5-17.0)
[2024-08-28] MEDS: Ketorolac Tromethamine 30 MG/ML VIAL IM (12:24)
[2024-08-28 12:25] VITALS: RESP 18
[2024-08-28] MEDS: HYDROmorphone HCl 1 MG/ML SYRINGE IM (12:25)
[2024-08-28 12:53] VITALS: BP 139/84; PULSE 82; RESP 18; O2SAT 95
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
[2024-08-28 14:24] VITALS: BP 139/84; PULSE 82; RESP 18; TEMP 36.4; O2SAT 95
== END 2024-08-28 14:25 | disposition home or self-care (01) ==
PROVIDERS: Physician Assistant; Emergency Provider Emergency Medicine; PCP Pediatrics
DX: M54.2 Cervicalgia (principal); M25.512 Pain in left shoulder; R94.31 Abnormal electrocardiogram [ECG] [EKG]; Z79.899 Other long term (current) drug therapy
CPT/HCPCS: 36415; 73030; 80053; 82550; 84484; 85025; 85610; 85730; 93005; 96372; 99284; J1171; J1885

== ENCOUNTER → 2024-08-28 11:31 | Outpatient (BNV) | payer OTHER, SELFPAY | PROVIDERS: Emergency Provider Emergency Medicine; PCP Pediatrics; Visit Provider Internal Medicine Cardiovascular Disease | DX: M25.512 Pain in left shoulder (principal) | CPT/HCPCS: 93010 ==

== ENCOUNTER → 2024-08-28 11:31 | Outpatient (BNV) | payer OTHER, SELFPAY | PROVIDERS: Emergency Provider Emergency Medicine; PCP Pediatrics; Visit Provider Radiology Vascular & Interventional Radiology | DX: M25.512 Pain in left shoulder (principal) | CPT/HCPCS: 73030 ==

== ENCOUNTER 2024-08-30 08:49 | Outpatient (AMB) | payer OTHER, SELFPAY ==
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
[2024-08-30 08:53] VITALS: BP 165/106; PULSE 95; BMI 29.6
--- OUTSIDE RECORDS SUMMARY | 2024-08-30 09:03 | XMS_ITS | Clinical Summary ---
Author Organization [address] Address [address] [place] [phone] Phone Care Team Providers Care Event Sales Manager Name Role Phone Lalita Rice DO Primary [...] age to complete this topic Insurance BCBS [facility] Care Teams Event Sales Manager Relationship Specialty Start Date End Date Lalita Rice DO [address] [place] [phone] PCP - General Pediatrics 04/08/23
== END 2024-08-30 09:07 | disposition home or self-care (01) ==
PROVIDERS: PCP Pediatrics; Visit Provider Nurse Practitioner Family
DX: M54.12 Radiculopathy, cervical region (principal); M62.838 Other muscle spasm; M47.812 Spondylosis without myelopathy or radiculopathy, cervical region; M50.10 Cervical disc disorder with radiculopathy, unspecified cervical region; R20.0 Anesthesia of skin; R20.2 Paresthesia of skin
CPT/HCPCS: 99214

== ENCOUNTER 2024-09-01 06:19 | Outpatient (REF) | payer OTHER, SELFPAY ==
--- NOTE | ~2024-09-01 | FL_ITS ---
EXAMINATION: FL GUIDANCE ONLY HISTORY: M50.10 - Cervical disc disorder with radiculopathy, unspecified cervical COMPARISON: None available. TECHNIQUE: Fluoroscopy time: 0.1 minutes. Cumulative Dose: 0.777 mGy. DAP: 0.92460 mGym2 Images: 2. FINDINGS: Images demonstrate a needle and contrast material in the left neck. FL/FL guidance in treatment room IMPRESSION: Fluoroscopy during procedure. Please see procedure report for additional information. Electronically signed by: Ovidio Weaver MD 09/01/2024 12:08 PM CLARA PEACOCK
--- OUTSIDE RECORDS SUMMARY | 2024-09-01 06:21 | XMS_ITS | Clinical Summary ---
Author Organization [address] Address [address] [place] [phone] Phone Care Team Providers Care Coin Box Inspector Name Role Phone Lalita Rice DO Primary [...] age to complete this topic Insurance BCBS [facility] Care Teams Coin Box Inspector Relationship Specialty Start Date End Date Lalita Rice DO [address] [place] [phone] PCP - General Pediatrics 04/08/23
== END 2024-09-01 06:20 | disposition home or self-care (01) ==
LOC: CF 06:19
PROVIDERS: Visit Provider Internal Medicine
DX: M50.10 Cervical disc disorder with radiculopathy, unspecified cervical region (principal); M47.22 Other spondylosis with radiculopathy, cervical region
CPT/HCPCS: 62321; J1100; J2003; Q9967

== ENCOUNTER → 2024-09-01 08:53 | Outpatient (AMB) | payer OTHER, SELFPAY ==
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
--- OUTSIDE RECORDS SUMMARY | 2024-09-01 09:10 | XMS_ITS | Clinical Summary ---
Author Organization [address] Address [address] [place] [phone] Phone Care Team Providers Care Spanish Interpreter/Translator Name Role Phone Lalita Rice DO Primary [...] age to complete this topic Insurance BCBS [facility] Care Teams Spanish Interpreter/Translator Relationship Specialty Start Date End Date Lalita Rice DO [address] [place] [phone] PCP - General Pediatrics 04/08/23
== END | disposition home or self-care (01) ==
PROVIDERS: PCP Pediatrics; Visit Provider Internal Medicine
DX: M54.12 Radiculopathy, cervical region (principal)
CPT/HCPCS: 62321

== ENCOUNTER 2024-09-19 08:46 | Outpatient (AMB) | payer OTHER, SELFPAY ==
[2024-09-19 09:04] VITALS: BMI 29.6
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
--- OUTSIDE RECORDS SUMMARY | 2024-09-19 09:15 | XMS_ITS | Clinical Summary ---
Author Organization [address] Address [address] [place] [phone] Phone Care Team Providers Care Woodworker Helper Name Role Phone Lalita Rice DO Primary [...] 05/17/2019, Additional history exists Covid-19 vaccine series (3 - 2023-25 season) 2024 09/08/2020, 08/11/2020 RSV Discussion (1 - 1-dose 75+ series) 2053 Meningococcal Vaccine Aged Out No monica leonides eligible based on patient's age to complete this topic Pneumococcal Vaccine (2 - 49 years) Aged Out No longer eligible based on patient's age to complete this topic Insurance BCBS [facility] Care Teams Woodworker Helper Relationship Specialty Start Date End Date Lalita Rice DO [address] [place] [phone] PCP - General Pediatrics 04/08/23
== END 2024-09-19 09:28 | disposition home or self-care (01) ==
PROVIDERS: PCP Pediatrics
DX: G56.01 Carpal tunnel syndrome, right upper limb (principal)
CPT/HCPCS: 99213

== ENCOUNTER → 2024-09-19 08:46 | Outpatient (BNVA) | payer OTHER, SELFPAY | PROVIDERS: PCP Pediatrics ==

== ENCOUNTER 2024-09-30 09:18 | Outpatient (AMB) | payer OTHER, SELFPAY ==
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
[2024-09-30 09:21] VITALS: BP 150/88; PULSE 90; RESP 16; O2SAT 99; BMI 29.8
--- OUTSIDE RECORDS SUMMARY | 2024-09-30 10:05 | XMS_ITS | Clinical Summary ---
Author Organization [address] Address [address] [place] [phone] Phone Care Team Providers Care Branch Associate Name Role Phone Lalita Rice DO Primary [...] age to complete this topic Insurance BCBS [facility] Care Teams Branch Associate Relationship Specialty Start Date End Date Lalita Rice DO [address] [place] [phone] PCP - General Pediatrics 04/08/23
== END 2024-09-30 09:52 | disposition home or self-care (01) ==
PROVIDERS: PCP Pediatrics; Visit Provider Internal Medicine
DX: M50.10 Cervical disc disorder with radiculopathy, unspecified cervical region (principal)
CPT/HCPCS: 99213

== ENCOUNTER → 2024-09-30 09:18 | Outpatient (BNVA) | payer OTHER, SELFPAY | PROVIDERS: PCP Pediatrics; Visit Provider Internal Medicine ==

== ENCOUNTER 2024-10-31 08:36 | Outpatient (REF) | payer OTHER, SELFPAY ==
[2024-10-31 08:54] LABS: MANUAL DIFF FLAG NO
--- OUTSIDE RECORDS SUMMARY | 2024-10-31 09:08 | XMS_ITS | Clinical Summary ---
Author Organization [address] Address [address] [place] [phone] Phone Care Team Providers Care Pool Hall Inspector Name Role Phone Lalita Rice DO [...] cancer screening, Colonoscopy 2023 Diabetes screening 2023 Covid-19 vaccine series ( season) 2024 09/08/2020, 08/11/2020 Influenza vaccine 03/27/2025 05/16/2021, , 05/17/2019, Additional history exists RSV Immunization (1 - 1-dose 75+ series) 2053 Meningococcal Vaccine Aged Out No monica leonides eligible based on patient's age to complete this topic Pneumococcal Vaccine (2 - 49 years) Aged Out No longer eligible based on patient's age to complete this topic Insurance BCBS [facility] Care Teams Pool Hall Inspector Relationship Specialty Start Date End Date Lalita Rice DO [address] [place] [phone] PCP - General Pediatrics 04/08/23
[2024-10-31 09:54] LABS: Basophils Absolute Auto 0.1 X10*3/uL (0.0-0.2); Basophils Percent Auto 1.1 % (0-2); Eosinophils Absolute Auto 0.1 X10*3/uL (0.0-0.4); Eosinophils Percent Auto 2.2 % (0-4); Hematocrit 41.5 % (37.0-47.0); Hemoglobin 13.6 g/dl (12.0-16.0); Imm Gran Abs Auto 0.01 X10*3/uL (0.00-0.03); Imm Gran Pct Auto 0.2 % (0.0-0.4); Lymphocytes Absolute Auto 1.1 X10*3/uL (1.2-4.9); Lymphocytes Percent Auto 25.1 % (20-40); Mean Corpuscular HGB Conc 32.8 g/dl (31.0-35.0); Mean Corpuscular Hemoglobin 30.6 pg (27.0-33.0); Mean Corpuscular Volume 93.5 fL (80.0-98.0); Mean Platelet Volume 10.2 fL (9.4-12.3); Monocytes Absolute Auto 0.5 X10*3/uL (0.1-1.2); Monocytes Percent Auto 11.5 % (2-11); Neutrophils Absolute Auto 2.7 x10*3/uL (2.0-8.3); Neutrophils Percent Auto 59.9 % (45-73); Platelet Count 244 X10*3/uL (160-400); Red Blood Count 4.44 X10*6/uL (4.20-5.50); Red Cell Distribution Width 12.8 % (11.0-16.0); White Blood Count 4.5 X10*3/uL (4.8-10.8)
[2024-10-31 10:04] LABS: Estimated Average Glucose 103 mg/dL; Hemoglobin A1C 121.5721 umol/L; Hemoglobin A1c % 5.2 % (<6.0); Total Hemoglobin (HGBA1C) 3658.3785 umol/L
[2024-10-31 10:42] LABS: Cholesterol 220 mg/dL (<200); HDL Cholesterol 53 mg/dL (>40); LDL Cholesterol Calculated 140 mg/dL (<100); Triglycerides 136 mg/dL (<150)
[2024-10-31 10:56] LABS: TSH reflex Free T4 2.06 uIU/mL (0.32-4.0)
== END 2024-10-31 08:37 | disposition home or self-care (01) ==
LOC: HO.LAB 08:36
PROVIDERS: PCP Pediatrics; Visit Provider Pediatrics
DX: Z00.00 Encounter for general adult medical examination without abnormal findings (principal); Z13.1 Encounter for screening for diabetes mellitus
CPT/HCPCS: 36415; 80061; 83036; 84443; 85025

== ENCOUNTER 2024-11-16 07:03 | Outpatient (RCR) | payer OTHER, SELFPAY ==
--- NOTE | 2024-11-16 07:54 | MHC.PT.DC ---
[facility] [place] Office [place] Office [place] Office [address] Carlton Brownlee [address] [phone] F: [phone] F: [phone] F: [phone] F: [phone] Physical Therapy Discharge Report Diagnosis: LEFT CERVICAL RADICULOPATHY (KP) Date of Surgery: NA Date of Evaluation: 09/22/24 Date of Discharge: 11/16/24 Treatments to Date: 13 Cancellations to Date: 0 No Shows to Date: 0 Discharge Status: Achieved Goals Improved Function Independent with HEP Discharge Summary: AUBREY HAS MADE PROGRESS IN PT EVIDENT W DECR CERV / Lt UE SXS , EXCEPT FOR THE PERSISTENT NUMBNESS IN HER Lt DISTAL / PALMAR INDEX FINGER (END RANGE CERV EXT CAN EXACERBATE C5/6, LEFT). SHE IS INDEP W HER HEP, ADDRESSING TOS BASED EXER AND MID BACK STRENGTHENING- SHE IS INDEP W POSTURAL SELF-CORRECT AND HAS BEEN ABLE TO RESUME HER REG ADLs W/O EXACERBATING SXS- HER NPDI AT EVAL WAS 14/50 AND AT D/C TODAY, 1/50. SHE IS READY FOR HER D/C AND HAS FULL COMPREHENSION OF IMPORTANCE OF CONT W HEP, ETC FOR OPTIMAL SX RESOLUTION. Electronically signed by: VERNA FRIEDMAN,PT Please sign and return to therapist. Thank you for your referral.
== END 2024-11-16 07:54 | disposition home or self-care (01) ==
LOC: HO.PT 07:03
PROVIDERS: PCP Pediatrics; Visit Provider Nurse Practitioner Family
DX: M47.812 Spondylosis without myelopathy or radiculopathy, cervical region (principal); R20.2 Paresthesia of skin; M79.609 Pain in unspecified limb
CPT/HCPCS: 97012; 97110; 97140; 97161; 97530

== ENCOUNTER → 2025-01-25 13:05 | Outpatient (AMB) | payer OTHER, SELFPAY ==
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
[2025-01-25 13:10] VITALS: BP 131/95; PULSE 84; BMI 28.6
--- OUTSIDE RECORDS SUMMARY | 2025-01-25 13:42 | XMS_ITS | Clinical Summary ---
Author Organization [address] Address [address] [place] [phone] Phone Care Team Providers Care Copying Machine Mechanic Name Role Phone Lalita Rice DO Primary [...] complete this topic Insurance BCBS [facility] Care Teams Copying Machine Mechanic Relationship Specialty Start Date End Date Lalita Rice DO [address] [place] [phone] PCP - General Pediatrics 04/08/23
== END ==
LOC: HO.HGI 13:06
PROVIDERS: PCP Pediatrics; Visit Provider Internal Medicine
DX: R10.2 Pelvic and perineal pain (principal)
CPT/HCPCS: 99214

== ENCOUNTER 2025-02-06 15:46 | Outpatient (REF) | payer OTHER, SELFPAY ==
--- OUTSIDE RECORDS SUMMARY | 2025-02-06 16:49 | XMS_ITS | Clinical Summary ---
Author Organization [address] Address [address] [place] [phone] Phone Care Team Providers Care Cook Vacuum Kettle Name Role Phone Lalita Rice DO Primary [...] age to complete this topic Insurance BCBS [facility] Care Teams Cook Vacuum Kettle Relationship Specialty Start Date End Date Lalita Rice DO [address] [place] [phone] PCP - General Pediatrics 04/08/23
== END 2025-02-06 15:47 | disposition home or self-care (01) ==
LOC: HO.LNP 15:46
PROVIDERS: Visit Provider Internal Medicine Pulmonary Disease
DX: Z13.89 Encounter for screening for other disorder (principal)
CPT/HCPCS: 87252

== ENCOUNTER 2025-02-07 10:38 | Outpatient (REF) | payer OTHER, SELFPAY ==
--- OUTSIDE RECORDS SUMMARY | 2025-02-07 11:56 | XMS_ITS | Clinical Summary ---
Author Organization [address] Address [address] [place] [phone] Phone Care Team Providers Care Paper Cup Handle Machine Operator Name Role Phone Lalita Rice DO Primary [...] age to complete this topic Insurance BCBS [facility] Care Teams Paper Cup Handle Machine Operator Relationship Specialty Start Date End Date Lalita Rice DO [address] [place] [phone] PCP - General Pediatrics 04/08/23
== END 2025-02-07 10:39 | disposition home or self-care (01) ==
LOC: HO.LNP 10:38
PROVIDERS: Visit Provider Internal Medicine Pulmonary Disease
DX: Z13.89 Encounter for screening for other disorder (principal)
CPT/HCPCS: 87252

== ENCOUNTER 2025-06-29 13:27 | Outpatient (REF) | payer OTHER, SELFPAY ==
--- NOTE | ~2025-06-29 | MM_ITS ---
EXAMINATION: MM SCREENING DIGITAL BREAST TOMOSYNTHESIS, BILATERAL CLINICAL INFORMATION: Screening. Asymptomatic. COMPARISON: Comparison made to multiple prior, most recent June 16, 2024, and most remote April 24, 2022. TECHNIQUE: Digital breast tomosynthesis is performed in mediolateral oblique and craniocaudal views along with computer-aided detection (CAD). Synthesized 2D images are generated from the tomosynthesis. FINDINGS: BREAST COMPOSITION: The breasts are heterogeneously dense, which may obscure small masses. BILATERAL BREASTS: No significant masses, suspicious calcifications or other abnormalities are seen in either breast. MM/MM tomosynthesis screening BI IMPRESSION: BILATERAL BREASTS: Negative, no mammographic evidence of malignancy. Normal interval follow-up is recommended in 12 months. ASSESSMENT: BI-RADS: Category 1: Negative RECOMMENDATION: Routine annual mammography screening. FOLLOW-UP: 1 year F/U This examination should not preclude the clinical evaluation of a suspicious palpable abnormality. This patient's information was entered into a reminder system with a target due date for their next mammogram. Electronically signed by: Romana Izaguirre MD 06/29/2025 02:22 PM [facility]
== END 2025-06-29 13:28 | disposition home or self-care (01) ==
LOC: HO.MAMMO 13:27
PROVIDERS: PCP Pediatrics; Visit Provider Pediatrics
DX: Z12.31 Encounter for screening mammogram for malignant neoplasm of breast (principal)
CPT/HCPCS: 77063; 77067

== ENCOUNTER → 2025-06-29 13:30 | Outpatient (BNV) | payer OTHER, SELFPAY | PROVIDERS: PCP Pediatrics; Visit Provider Radiology Body Imaging | DX: Z12.31 Encounter for screening mammogram for malignant neoplasm of breast (principal) | CPT/HCPCS: 77063; 77067 ==